=== PATIENT | female | born 1970 | race Caucasian/White ===

== ENCOUNTER 2017-01-17 10:40 | Outpatient (CLI) | payer OTHER ==
[2017-01-17 12:13] LABS: Bilirubin Negative (Negative); Blood, Urine Negative (Negative); Glucose, Urine (Dipstick) 250 mg/dL (Negative); Ketone, Urine Negative (Negative); Nitrite Negative (Negative); Protein, Urine (Dipstick) Negative (Neg-Trace); Urobilinogen 0.2 mg/dL (0.2-1.0)
[2017-01-17 12:17] LABS: Bacteria/HPF None Seen HPF (None Seen); Hyaline Casts/LPF 0-3 HYALINE CAST LPF (0-3 Hyaline); RBC/HPF 0-3 HPF (0-3); Squamous Epithelial 0-3 HPF (0-3); WBC/HPF 0-3 HPF (0-3)
[2017-01-17 12:21] LABS: #Eosinphils 0.2 thou/uL (0.0-0.7); #Lymphocytes 1.8 thou/uL (1.20-3.40); #Monocytes 0.5 thou/uL (0.11-0.59); #Neutrophils 5.3 thou/uL (1.40-6.50); %Basophils 0.5 % (0.0-1.0); %Eosinophils 2.1 % (0.0-10.0); %Lymphocytes 23.1 % (21.0-51.0); Hematocrit 44.5 % (36.0-47.0); Mean Platelet Volume 7.9 fL (7.4-10.4); Red Blood Cell (RBC) Count 5.14 mill/uL (4.20-5.40); White Blood Cell (WBC) Count 7.7 thou/uL (4.8-10.8)
[2017-01-17 12:27] LABS: PTT 26.5 SEC (22.9-36.1); Prothrombin Time 12.6 SEC (12.0-14.7)
== END 2017-01-17 10:41 | disposition home or self-care (01) ==
LOC: LABBT 10:40
PROVIDERS: ATTEND Orthopaedic Surgery
DX: Z01.812 Encounter for preprocedural laboratory examination (principal); G56.21 Lesion of ulnar nerve, right upper limb; G56.01 Carpal tunnel syndrome, right upper limb
CPT/HCPCS: 81001; 85025; 85610; 85730

== ENCOUNTER 2017-01-18 05:47 | Day surgery (SDC) | payer OTHER ==
[2017-01-17 11:01] VITALS: BMI 44.1
[2017-01-18] MEDS ORDERED: CEFAZOLIN/Water 2 GM/20 ML SYRINGE ONE (06:00)
[2017-01-18] MEDS ORDERED: Lidocaine 1% w/Epinephrine 1:200K 30 ML VIAL ONE (06:52)
[2017-01-18] MEDS ORDERED: Midazolam HCl 2 mg/2 ml Vial ONE ×2 (07:02→07:05)
[2017-01-18] MEDS ORDERED: Fentanyl 250 MCG/5 ML VIAL ONE (07:05)
[2017-01-18] MEDS ORDERED: Bupivacaine/Epinephrine 0.25% 30 ML VIAL ONE (07:34)
[2017-01-18] MEDS ORDERED: Fentanyl 100 MCG/2 ML VIAL ONE ×2 (09:02→10:03)
--- NOTE | 2017-01-18 10:00 | OP ---
DATE OF PROCEDURE: 01/18/2017 PREOPERATIVE DIAGNOSES: 1. Right carpal tunnel. 2. Right cubital tunnel. PROCEDURE PERFORMED: 1. Right open carpal tunnel release. 2. Right open cubital tunnel release. 3. Application of long arm splint. STAFF: Santos Jeffries M.D. SCHOOL PROGRAM DIRECTOR: None. ANESTHESIA: Aleksey Olmstead. The patient received a LMA with 20 mL of 0.25% Marcaine with epinephrine. ESTIMATED BLOOD LOSS: Less than 30 mL. TOURNIQUET TIME: 45 minutes at 250 mmHg. ANTIBIOTICS: Ancef 2 grams. IMPLANTS: None. COMPLICATIONS: None. HISTORY OF PRESENT ILLNESS: Ms. Miranda is a 46-year-old female who is right hand dominant. The pat ient works as a nurse. The patient presented after a nerve conduction test showing carpal tunnel and cubital tunnel. She has had symptoms for 3 years. I discussed with the patient the risks and benef its of right carpal and cubital tunnel release including pain, scar, bleeding, infection, damage to t he nerves, need for further surgeries, failure of procedure, continued pain despite surgical interven tion, stiffness, loss of life or limb. The patient understood the risks and benefits of the procedur e and elected to proceed. PROCEDURE IN DETAIL: Timeout was performed designating the patient's right upper extremity as the op erative site. Based on sight, consents and marking after completion of timeout, the patient's right upper extremity was prepped and draped in sterile fashion. Tourniquet was brought up and left up fo r a total of 45 minutes. Incision was made proximal to Granados's cardinal line in line with the fourt h ray and lateral to the hypothenar eminence down through skin. The fat was excised, came down on th e patient's transverse carpal ligament. We used a hemostat to protect the nerve distally, came down transecting the transverse carpal ligament in its entirety. I looked proximally to ensure the fascia as well as transverse carpal tunnel was released. The nerve was released in its entirety. I washed the wound, closed with 4-0 nylon horizontal mattresses, placed 9 mL of Marcaine in the wound incisio ns as well as subcu in a wrist block fashion. I then moved to the patient's elbow, I perform an inci juan carlos over the patient just in the midline. The patient had an incision down through skin, there were some vessels bleeding, came down to the triceps. I found the lateral aspect of the triceps, took th e fascia and the Chen's ligament. I released it laterally to medially keeping a consistent fascia l band to help act as a sling to keep it from subluxing, I then moved proximally to ensure that it wa s released in its entirety, I then moved proximally. I moved distally to ensure the fascia was split . I ensured it was completely released. I used 0 Vicryl to use to that fascial band, I sewed subcu t o help as a sling to keep it from subluxing over the epicondyle. I watched it track, it did not snap or sublux. I then washed and closed with 2-0 and 3-0 Vicryl and placed 10 mL of Marcaine subcu for pain relief. After I had washed, closed and placed the patient in a long posterior splint. The patient will follow up with me in 2 weeks for suture removal. She will remove the splint in 1 we ek.
[2017-01-18] MEDS ORDERED: HYDROcodone/Acetaminophen 5/325 mg Tablet ONE (10:40)
[2017-01-18] MEDS ORDERED: Propofol 200 MG/20 ML VIAL ONE (14:42)
[2017-01-18] MEDS ORDERED: Ondansetron HCl/PF 4 MG/2 ML Vial ONE (14:42)
== END 2017-01-18 11:30 | disposition home or self-care (01) ==
LOC: SDC 05:47
PROVIDERS: ATTEND Orthopaedic Surgery
PROC: 01N40ZZ Release Ulnar Nerve, Open Approach (ICD-10-PCS; principal; 2017-01-18)
PROC: 01N50ZZ Release Median Nerve, Open Approach (ICD-10-PCS; principal; 2017-01-18)
DX: G56.01 Carpal tunnel syndrome, right upper limb (principal); G56.21 Lesion of ulnar nerve, right upper limb; E78.5 Hyperlipidemia, unspecified; D66 Hereditary factor VIII deficiency; F17.210 Nicotine dependence, cigarettes, uncomplicated; E66.01 Morbid (severe) obesity due to excess calories; Z68.41 Body mass index [BMI] 40.0-44.9, adult; Z88.5 Allergy status to narcotic agent; Z88.6 Allergy status to analgesic agent; Z88.8 Allergy status to other drugs, medicaments and biological substances; Z91.018 Allergy to other foods; Z79.899 Other long term (current) drug therapy; Z98.890 Other specified postprocedural states
CPT/HCPCS: 96374; J2250; J2405; J2704; J3010

== ENCOUNTER 2017-06-22 11:48 | Outpatient (CLI) | payer OTHER ==
--- NOTE | 2017-06-22 13:40 | ULT ---
ULTRASOUND PELVIS: HISTORY: R10.2, right adnexal tenderness. COMPARISON: None. TECHNIQUE: Real-time, resendiz scale, color Doppler, and spectral analysis of the pelvis was performed by transabdom inal and transvaginal approach. The uterus measures 7.4 x 3.7 x 5 cm. Endometrial thickness is 4 mm. Right ovary is 2.4 x 1.6 x 1.2 cm. The left ovary is not visualized. The technologist states there are multiple small fibroids of the uterus. There is an ovoid mass lanre g the anterior submucosal interface measuring up to 1.8 cm. This effaces the endometrial stripe. IMPRESSION: 1. Likely an anterior fundal submucosal fibroid measuring up to 1.8 cm, although a mass cannot be co mpletely excluded. Direct visualization may be helpful. 2. Nonvisualization of the left ovary. 3. No free fluid. POS: [facility]
== END 2017-06-22 11:49 | disposition home or self-care (01) ==
LOC: SCSMRI 11:48
PROVIDERS: ATTEND Internal Medicine
DX: R10.2 Pelvic and perineal pain (principal)
CPT/HCPCS: 76856

== ENCOUNTER 2017-06-27 11:12 | Emergency (ER) | payer OTHER ==
[2017-06-27 11:58] LABS: #Eosinphils 0.2 thou/uL (0.0-0.7); #Lymphocytes 2.4 thou/uL (1.20-3.40); #Monocytes 0.4 thou/uL (0.11-0.59); #Neutrophils 6.5 thou/uL (1.40-6.50); %Basophils 0.4 % (0.0-1.0); %Eosinophils 2.3 % (0.0-10.0); %Lymphocytes 24.9 % (21.0-51.0); %Monocytes 4.2 % (0.0-10.0); %Neutrophils 68.1 % (42.0-75.0); Hemoglobin 14.9 g/dL (12.0-16.0); Mean Corpuscular HGB CONC 34.4 g/dL (32.0-36.0); Mean Corpuscular Hemoglobin 29.6 pg (27.0-31.0); Mean Corpuscular Volume 86.1 fl (81.0-99.0); Mean Platelet Volume 8.2 fL (7.4-10.4); Platelet Count 281 thou/uL (130-400); RBC Distribution Width 12.7 % (11.5-14.5); Red Blood Cell (RBC) Count 5.02 mill/uL (4.20-5.40); White Blood Cell (WBC) Count 9.5 thou/uL (4.8-10.8)
[2017-06-27] MEDS ORDERED: Ondansetron ODT 4 MG TAB ONE (12:13)
[2017-06-27] MEDS ORDERED: Nitroglycerin 0.4 MG TAB (25 Tab Bottle) ONE (12:13)
[2017-06-27 12:14] LABS: CKMB 0.5 ng/mL (0-6.6); Troponin I Less than 0.010 ng/mL (< 0.028)
[2017-06-27 12:23] LABS: Magnesium 2.1 mg/dL (1.6-2.6)
--- NOTE | 2017-06-27 12:24 | RAD ---
CHEST ONE VIEW: History: 46-year-old female with history of chest pain. FINDINGS: Heart size is within normal limits. Monitor lead overlies the chest. No confluent pneumonia, overt ed filomena, or pleural effusion. IMPRESSION: No acute intrathoracic disease. POS: [facility]
[2017-06-27 12:34] LABS: Bilirubin Negative (Negative); Blood, Urine Negative (Negative); Clarity CLEAR (Clear); Glucose, Urine (Dipstick) Negative (Negative); Leukocyte Negative (Negative); Nitrite Negative (Negative); Protein, Urine (Dipstick) Negative (Neg-Trace); Urobilinogen 0.2 mg/dL (0.2-1.0); pH, Urine 5.5 (5.0-9.0)
[2017-06-27 12:37] LABS: ALT (SGPT) 38 U/L (8-55); AST (SGOT) 55 U/L (5-34); Alkaline Phosphatase 127 U/L (40-150); Anion Gap 15 mmol/L (10-20); BUN (Urea Nitrogen) 11 mg/dL (7.0-18.7); Bilirubin, Total 0.4 mg/dL (0.2-1.2); Calc. Creatinine Clearance 0 mL/min (70-130); Calcium 9.4 mg/dL (7.8-10.44); Carbon Dioxide 25 mmol/L (22-29); Chloride 102 mmol/L (98-107); Estimated GFR-MDRD Greater than 90; Globulin 3.2 g/dL (2.4-3.5); Glucose 148 mg/dL (70-105); Potassium 4.6 mmol/L (3.5-5.1); Protein, Total 7.2 g/dL (6.0-8.3); Sodium 137 mmol/L (136-145)
[2017-06-27 15:21] LABS: Troponin I Less than 0.010 ng/mL (< 0.028)
== END 2017-06-27 16:39 | disposition home or self-care (01) ==
LOC: ERS 11:12
DX: R07.89 Other chest pain (principal); E11.9 Type 2 diabetes mellitus without complications; D66 Hereditary factor VIII deficiency; F17.210 Nicotine dependence, cigarettes, uncomplicated; Z79.899 Other long term (current) drug therapy
CPT/HCPCS: 36415; 71045; 80053; 81003; 82553; 83690; 83735; 84443; 84484; 85025; 85379; 93005; Q0162

== ENCOUNTER 2017-06-29 09:59 | Outpatient (CLI) | payer OTHER | END 2017-06-29 10:00 | disposition home or self-care (01) | LOC: BICMAMMO 09:59 | PROVIDERS: ATTEND Internal Medicine | DX: N63.10 Unspecified lump in the right breast, unspecified quadrant (principal); Z80.3 Family history of malignant neoplasm of breast | CPT/HCPCS: 77066; G0279 ==

== ENCOUNTER 2017-06-29 14:38 | Outpatient (CLI) | payer OTHER ==
--- NOTE | 2017-06-29 15:53 | MRI ---
MRI LUMBAR SPINE NONCONTAST: HISTORY: Low back pain with left thigh radiculopathy. FINDINGS: Conus medullaris has a normal appearance. Vertebral body height and alignment are maintained. Mild osteophytosis is present throughout the lower facets. Very mild posterior disk bulge is present at t he lumbosacral junction without focal herniation. Tarlov cysts are associated with the left sacral n erve root at the S2 level. IMPRESSION: Very mild degenerative changes lower lumbar spine. No focal disk herniation or nerve root compressio n. POS: [facility]
== END 2017-06-29 14:39 | disposition home or self-care (01) ==
LOC: TBSIIMAG 14:38
PROVIDERS: ATTEND Internal Medicine
DX: M47.26 Other spondylosis with radiculopathy, lumbar region (principal)
CPT/HCPCS: 72148

== ENCOUNTER 2017-11-06 10:39 | Emergency (ER) | payer OTHER ==
[2017-11-06] MEDS ORDERED: ISOVUE-370 76%-LOCM 1 ML ONE (10:51)
[2017-11-06 11:28] LABS: Bilirubin Negative (Negative); Blood, Urine Negative (Negative); Clarity CLEAR (Clear); Glucose, Urine (Dipstick) >=1000 mg/dL (Negative); Leukocyte Negative (Negative); Nitrite Negative (Negative); Protein, Urine (Dipstick) Negative (Neg-Trace); Specific Gravity, Urine 1.029 (1.002-1.036); Urobilinogen 0.2 mg/dL (0.2-1.0)
[2017-11-06 11:28] LABS: #Basophils 0.1 thou/uL (0.0-0.2); #Eosinphils 0.2 thou/uL (0.0-0.7); #Lymphocytes 2.2 thou/uL (1.20-3.40); #Monocytes 0.3 thou/uL (0.11-0.59); #Neutrophils 5.2 thou/uL (1.40-6.50); %Basophils 0.8 % (0.0-1.0); %Eosinophils 2.8 % (0.0-10.0); %Lymphocytes 27.2 % (21.0-51.0); %Monocytes 3.3 % (0.0-10.0); Hemoglobin 14.8 g/dL (12.0-16.0); Mean Corpuscular HGB CONC 33.8 g/dL (32.0-36.0); Mean Corpuscular Hemoglobin 29.1 pg (27.0-31.0); Mean Platelet Volume 8.6 fL (7.4-10.4); Platelet Count 271 thou/uL (130-400); RBC Distribution Width 12.9 % (11.5-14.5); Red Blood Cell (RBC) Count 5.09 mill/uL (4.20-5.40); White Blood Cell (WBC) Count 7.9 thou/uL (4.8-10.8)
[2017-11-06 11:47] LABS: ALT (SGPT) 44 U/L (8-55); AST (SGOT) 83 U/L (5-34); Alkaline Phosphatase 134 U/L (40-150); Anion Gap 16 mmol/L (10-20); BUN (Urea Nitrogen) 12 mg/dL (7.0-18.7); Bilirubin, Total 0.3 mg/dL (0.2-1.2); Calc. Creatinine Clearance 0 mL/min (70-130); Calcium 9.9 mg/dL (7.8-10.44); Carbon Dioxide 26 mmol/L (22-29); Chloride 99 mmol/L (98-107); Estimated GFR-MDRD 76; Globulin 3.7 g/dL (2.4-3.5); Glucose 303 mg/dL (70-105); Lipase 52 U/L (8-78); Potassium 4.6 mmol/L (3.5-5.1); Protein, Total 7.7 g/dL (6.0-8.3); Sodium 136 mmol/L (136-145)
[2017-11-06 13:15] LABS: CKMB 0.4 ng/mL (0-6.6); Troponin I Less than 0.010 ng/mL (< 0.028)
[2017-11-06] MEDS ORDERED: Ondansetron HCl/PF 4 MG/2 ML Vial ONE (14:36)
[2017-11-06] MEDS ORDERED: Morphine 4 MG/ML VIAL ONE (14:37)
--- NOTE | 2017-11-06 15:22 | CT ---
CT OF ABDOMEN AND PELVIS PERFORMED WITH CONTRAST ENHANCEMENT: History: Abdominal pain, vomiting, and loose stools. Diagnosed with pyelonephritis on . Also states a fever. History of factor A deficiency, hyperlipidemia. FINDINGS: The lung bases are clear of any infiltrate process. There are diffuse fatty changes of the liver whic h is enlarged. The right lobe is some thin elongated and therefore the superior to inferior dimension is somewhat misleading but it measures 30 cm. The spleen is 14.5 cm in length. Pancreas and gallblad jeanne regions appear unremarkable. Right and left adrenal glands and right and left kidneys are normal in size and appearance. No perine phric fat stranding. No signs of renal calculi or evidence of obstruction. There is no significant pe riaortic or mesenteric adenopathy. No bowel wall abnormalities are appreciated. CT OF PELVIS PERFORMED WITH CONTRAST ENHANCEMENT: The cecum passes actually slightly to the left of midline. The appendix area appear unremarkable. The re appears to be a small appendix present. I do not see any inflammatory change in this area. No free fluid, adenopathy or mass. Review of osseous structures show some minimal arthritic changes of the spine. IMPRESSION: 1. Diffuse fatty changes of the liver which hepatosplenomegaly. 2. Incidental note is made of a small fat containing periumbilical hernia. POS: [facility]
--- NOTE | 2017-11-10 13:36 | EKG ---
Test Reason : Blood Pressure : / mmHG Vent. Rate : 095 BPM Atrial Rate : 095 BPM P-R Int : 146 ms QRS Dur : 074 ms QT Int : 356 ms P-R-T Axes : 041 014 020 degrees QTc Int : 447 ms Normal sinus rhythm Possible Left atrial enlargement Low voltage QRS Septal infarct , age undetermined Abnormal ECG Confirmed by CHANTEL HIDALGO, ERIS Fountain ([id number]), make up editor SUSANA MCCLURE ([id number]) on 11/10/2017 1:35:38 PM Referred By: Confirmed By:ERIS GOLDEN MD
== END 2017-11-06 17:11 | disposition home or self-care (01) ==
LOC: ERS 10:39
DX: R11.2 Nausea with vomiting, unspecified (principal); R10.9 Unspecified abdominal pain; E78.5 Hyperlipidemia, unspecified; E11.9 Type 2 diabetes mellitus without complications; F17.210 Nicotine dependence, cigarettes, uncomplicated; Z71.6 Tobacco abuse counseling; Z79.84 Long term (current) use of oral hypoglycemic drugs; Z79.899 Other long term (current) drug therapy
CPT/HCPCS: 36415; 74177; 80053; 81003; 82550; 82553; 83690; 83880; 84484; 85025; 93005; 96361; 96374; 96375; J2270; J2405

== ENCOUNTER 2018-02-18 09:57 | Outpatient (CLI) | payer OTHER ==
--- NOTE | 2018-02-18 12:52 | MRI ---
MRI OF LEFT KNEE PERFORMED WITHOUT CONTRAST ENHANCEMENT: History: Left knee pain. FINDINGS: The anterior as well as posterior cruciate ligaments are intact. The lateral meniscus has a normal shape and appearance. On the sagittal images there is a slightly tr uncated appearance to the posterior horn of the medial meniscus near the meniscal root, less impressi ve on the coronal views, but is felt to represent a partial root tear. There is meniscal protrusion o f the body of the meniscus and there is a truncated appearance with a free edge tear involving the blanche dy region of the meniscus. There are arthritic changes of the medial compartment of the knee associat ed with this. Articular cartilage loss and some subchondral marrow edema change along the edge of the medial femoral condyle and tibia. Medial and lateral collateral ligaments and iliotibial band regions are unremarkable. Patellar articular cartilage is intact. Medial and lateral patellar retinaculum and quadriceps and pa tellar tendons are normal. IMPRESSION: Moderate arthritic changes of the medial compartment of the knee. Mildly truncated appearance to the posterior horn near the meniscal ridge is felt to represent a partial root tear. The body of the meni scus shows meniscal protrusion and a truncated appearance suggesting a free edge tear. POS: [facility]
== END 2018-02-18 09:58 | disposition home or self-care (01) ==
LOC: MRI 09:57
PROVIDERS: ATTEND Orthopaedic Surgery
DX: M17.12 Unilateral primary osteoarthritis, left knee (principal); M23.307 Other meniscus derangements, unspecified meniscus, left knee

== ENCOUNTER 2018-03-07 07:45 | Outpatient (CLI) | payer OTHER ==
[2018-03-07 11:36] LABS: Hemoglobin 13.8 g/dL (12.0-16.0); Mean Corpuscular HGB CONC 33.3 g/dL (32.0-36.0); Mean Corpuscular Hemoglobin 29.3 pg (27.0-31.0); Mean Corpuscular Volume 87.8 fL (78.0-98.0); Mean Platelet Volume 8.8 fL (7.4-10.4); Platelet Count 308 thou/uL (130-400); RBC Distribution Width 12.4 % (11.5-14.5); Red Blood Cell (RBC) Count 4.73 mill/uL (4.20-5.40)
[2018-03-07 11:37] LABS: Bilirubin Negative (Negative); Blood, Urine Large (Negative); Clarity CLOUDY (Clear); Glucose, Urine (Dipstick) Negative (Negative); Leukocyte Small (Negative); Nitrite Negative (Negative); Protein, Urine (Dipstick) Negative (Neg-Trace); Specific Gravity, Urine 1.022 (1.002-1.036); Urobilinogen 0.2 mg/dL (0.2-1.0)
[2018-03-07 11:41] LABS: RBC/HPF 21-50 HPF (0-3)
[2018-03-07 11:48] LABS: Pathc Cast-AUWi Flag 3.34 (0-2.49)
[2018-03-07 12:00] LABS: Prothrombin Time 13.4 SEC (12.0-14.7)
[2018-03-07 12:12] LABS: Anion Gap 17 mmol/L (10-20); BUN (Urea Nitrogen) 11 mg/dL (7.0-18.7); Calc. Creatinine Clearance 0 mL/min (70-130); Carbon Dioxide 23 mmol/L (22-29); Chloride 102 mmol/L (98-107); Estimated GFR-MDRD Greater than 90; Glucose 140 mg/dL (70-105); Potassium 4.2 mmol/L (3.5-5.1); Sodium 138 mmol/L (136-145)
[2018-03-07 12:13] LABS: Bacteria/HPF 1+ HPF (None Seen); Hyaline Casts/LPF 0-3 HYALINE CAST LPF (0-3 Hyaline); Manual Microscopic Reviewed? No Path Casts Seen
--- NOTE | 2018-03-07 13:19 | EKG ---
Test Reason : Blood Pressure : / mmHG Vent. Rate : 095 BPM Atrial Rate : 095 BPM P-R Int : 156 ms QRS Dur : 078 ms QT Int : 354 ms P-R-T Axes : 063 071 050 degrees QTc Int : 444 ms Normal sinus rhythm Low voltage QRS Septal infarct (cited on or before 27-JUN-2017) Abnormal ECG When compared with ECG of 06-NOV-2017 13:21, Questionable change in QRS axis Confirmed by ANABELA HIDALGO, . SJessica ([id number]) on 03/07/2018 1:19:02 PM Referred By: ELENI Confirmed By:DR. Nila PEÑALOZA MD
== END 2018-03-07 07:46 | disposition home or self-care (01) ==
LOC: LABBT 07:45
PROVIDERS: ATTEND Orthopaedic Surgery
DX: Z01.818 Encounter for other preprocedural examination (principal); M17.12 Unilateral primary osteoarthritis, left knee
CPT/HCPCS: 80048; 81001; 85027; 85610; 86850; 86900; 86901; 87081; 93005; 93010

== ENCOUNTER 2018-03-07 08:45 | Inpatient (IN) | payer OTHER ==
[2018-03-07 09:02] VITALS: BMI 44.6
[2018-03-12] MEDS ORDERED: Sodium Chloride 0.9% 100 ML ONE (06:41)
[2018-03-12] MEDS ORDERED: CEFAZOLIN 2 GM/50 ML BAG ONE (06:41)
[2018-03-12] MEDS ORDERED: Tranexamic Acid 1,000 MG/10 ML VIAL ONE ×3 (06:41→11:13)
[2018-03-12] MEDS ORDERED: Midazolam HCl 2 mg/2 ml Vial ONE ×2 (06:56→13:28)
[2018-03-12] MEDS ORDERED: Fentanyl 100 MCG/2 ML VIAL ONE ×4 (06:56→12:26)
[2018-03-12] MEDS ORDERED: Bupivacaine HCl 0.5%/Epinephrine 1:200,000/PF 30 ml Vial ONE ×2 (07:02)
[2018-03-12] MEDS ORDERED: Levofloxacin 500 mg/D5W 100 ml Premix Bag ONE (07:58)
[2018-03-12] MEDS ORDERED: Ondansetron PF 4 MG/2 ML Vial IVP PRN ×2 (08:45→14:30)
[2018-03-12] MEDS ORDERED: Zolpidem Tartrate 5 MG TAB PO PRN ×2 (08:45→14:30)
[2018-03-12] MEDS ORDERED: traMADol HCl 50 MG TAB PO PRN ×3 (08:45→14:30)
[2018-03-12] MEDS ORDERED: HYDROcodone/Acetaminophen 10/325 mg Tablet PO PRN ×3 (08:45→14:30)
[2018-03-12] MEDS ORDERED: Promethazine HCl 25 MG/ML VIAL IM PRN ×2 (08:45→14:30)
[2018-03-12] MEDS ORDERED: Ropivacaine HCl/PF 250 ML in Premix Bag 1 BAG NERVE BLCK SCH (08:45)
[2018-03-12] MEDS ORDERED: Meperidine HCl/PF 25 MG/ML VIAL ONE ×2 (09:38→09:41)
[2018-03-12 09:53] LABS: Bilirubin Negative (Negative); Blood, Urine Negative (Negative); Clarity CLEAR (Clear); Glucose, Urine (Dipstick) Negative (Negative); Leukocyte Negative (Negative); Nitrite Negative (Negative); Protein, Urine (Dipstick) Negative (Neg-Trace); Specific Gravity, Urine 1.018 (1.002-1.036); Urobilinogen 0.2 mg/dL (0.2-1.0); pH, Urine 5.5 (5.0-9.0)
[2018-03-12 09:55] LABS: Bacteria/HPF None Seen HPF (None Seen); Hyaline Casts/LPF 0-3 HYALINE CAST LPF (0-3 Hyaline); Pathc Cast-AUWi Flag 0.58 (0-2.49); RBC/HPF 0-3 HPF (0-3); Squamous Epithelial 0-3 HPF (0-3); WBC/HPF 0-3 HPF (0-3)
--- NOTE | 2018-03-12 12:20 | RAD ---
TWO VIEWS LEFT KNEE: Date: 03-12-18 Provided Clinical History: Post op. FINDINGS: Post op changes of left total knee arthroplasty are demonstrated. There is no evidence for an acute o sseous abnormality. Post-operative soft tissue gas is seen. IMPRESSION: As above. POS: [facility]
[2018-03-12] MEDS ORDERED: Non-Formulary Medication 1 EACH PO PRN (12:40)
[2018-03-12] MEDS ORDERED: Promethazine HCl 25 MG/ML VIAL IM/IV PRN (12:40)
[2018-03-12] MEDS ORDERED: Ondansetron HCl/PF 4 MG/2 ML Vial IVP PRN (12:40)
[2018-03-12] MEDS ORDERED: Dextrose 5% in Water 1,000 ML IV PRN (14:24)
[2018-03-12] MEDS ORDERED: Dextrose 50% Abboject 50 ML SYRINGE SLOW IVP PRN (14:24)
[2018-03-12] MEDS ORDERED: Diabetic Tussin 200 MG/10 ML UDCUP PO PRN (14:25)
[2018-03-12] MEDS ORDERED: Senokot S 8.6-50 MG TAB PO PRN (14:25)
[2018-03-12] MEDS ORDERED: Sodium Chloride 0.65% Nasal 44 ML BOT EA NARE PRN (14:25)
[2018-03-12] MEDS ORDERED: Loperamide HCl 2 MG CAP PO PRN (14:25)
[2018-03-12] MEDS ORDERED: Cepastat Lozenges 1 LOZ PO PRN (14:25)
[2018-03-12] MEDS ORDERED: Loratadine 10 MG TAB PO PRN (14:25)
[2018-03-12] MEDS ORDERED: Ondansetron ODT 4 MG TAB PO PRN (14:25)
[2018-03-12] MEDS ORDERED: Artificial Tears 18 DROP/0.9 ML EA EYE PRN (14:25)
[2018-03-12] MEDS ORDERED: Eucerin (Mineral Oil/Petrolatum,White) 30 gm Jar TOP PRN (14:25)
[2018-03-12] MEDS ORDERED: hydrALAZINE 20 MG/ML VIAL SLOW IVP PRN (14:25)
--- NOTE | 2018-03-12 14:29 | PDOC.PN ---
- Subjective Encounter Start Date: 03/12/18 Encounter Start Time: 15:15 -: old records requested/rev Patient seen and examined. No new complaints. No overnight events consulted for medical management she had left knee replacement - Objective Resuscitation Status - Order Detail: 03/12/18 14:25 Resuscitation Status Routine Resuscitation Status: FULL: Full Resuscitation MAR Reviewed: Yes Vital Signs & Weight: Weight Weight 268 lb I&O: 03/11/18 03/12/18 03/13/18 06:59 06:59 06:59 Intake Total 260 Output Total 250 Balance 10 Phys Exam - Physical Examination Constitutional: NAD HEENT: PERRLA, moist MMs, sclera anicteric Neck: no JVD, supple Respiratory: no wheezing, no rales, no rhonchi Cardiovascular: RRR, no significant murmur, no rub Gastrointestinal: soft, non-tender, no distention, positive bowel sounds obesity+ Musculoskeletal: no edema, pulses present left knee with dressing, nerve block in place Neurological: non-focal, normal sensation, moves all 4 limbs Psychiatric: normal affect, A&O x 3 Skin: no rash, normal turgor Dx/Plan (1) Status post total left knee replacement Code(s): Z96.652 - PRESENCE OF LEFT ARTIFICIAL KNEE JOINT Status: Acute (2) Diabetes type 2, controlled Code(s): E11.9 - TYPE 2 DIABETES MELLITUS WITHOUT COMPLICATIONS Status: Chronic (3) Dyslipidemia Code(s): E78.5 - HYPERLIPIDEMIA, UNSPECIFIED Status: Chronic (4) GERD (gastroesophageal reflux disease) Code(s): K21.9 - GASTRO-ESOPHAGEAL REFLUX DISEASE WITHOUT ESOPHAGITIS Status: Chronic (5) Hypertension Code(s): I10 - ESSENTIAL (PRIMARY) HYPERTENSION Status: Chronic (6) Morbid obesity with BMI of 40.0-44.9, adult Code(s): E66.01 - MORBID (SEVERE) OBESITY DUE TO EXCESS CALORIES; Z68.41 - BODY MASS INDEX (BMI) 40.0-44.9, ADULT Status: Chronic - Plan cont current plan of care, plan discussed w/ family, PT/OT * medication reviewed as below * symptomatic treatment * home medication reconciled * nerve block as per anesthesia * PT/OT as per [facility] protocol * pain control * code status full code * will follow. * protonix for GI prophylaxis. Review of Systems - Review of Systems ENT: negative: Ear Pain, Ear Discharge, Nose Pain, Nose Discharge, Nose Congestion, Mouth Pain, Mouth Swelling, Throat Pain, Throat Swelling, Other Respiratory: negative: Cough, Dry, Shortness of Breath, Hemoptysis, SOB with Excertion, Pleuritic Pain, Sputum, Wheezing Cardiovascular: negative: chest pain, palpitations, orthopnea, paroxysmal nocturnal dyspnea, edema, light headedness, other Gastrointestinal: negative: Nausea, Vomiting, Abdominal Pain, Diarrhea, Constipation, Melena, Hematochezia, Other Genitourinary: negative: Dysuria, Frequency, Incontinence, Hematuria, Retention , Other Musculoskeletal: negative: Neck Pain, Shoulder Pain, Arm Pain, Back Pain, Hand Pain, Leg Pain, Foot Pain, Other Skin: negative: Rash, Lesions, Erich, Bruising, Other - Medications/Allergies Allergies/Adverse Reactions: Allergies Allergy/AdvReac Type Severity Reaction Status Date / Time erythromycin base Allergy severe Verified 01/17/17 11:02 vomiting hydrocodone [From Vicodin] Allergy itching Verified 01/17/17 11:02 pecan nut Allergy Hives Verified 01/17/17 11:02 Medications: Current Medications Hydrocodone Bitart/Acetaminophen (Arbuckle 10/325) 1 tab PO Q4H PRN PRN Reason: Pain (1-3) Hydrocodone Bitart/Acetaminophen (Arbuckle 10/325) 2 tab PO Q4H PRN PRN Reason: PAIN (4-6) Alogliptin Benzoate (Alogliptin) 25 mg PO DAILY [facility] Artificial Tears (Tears Naturale) 2 drop EA EYE PRN PRN PRN Reason: Dry Eyes Cholecalciferol (Vitamin D3) 4,000 units PO DAILY [facility] Dextrose/Water (Dextrose 50%) 25 gm SLOW IVP PRN PRN PRN Reason: Hypoglycemia Fentanyl (Sublimaze) 50 mcg SLOW IVP Q1H PRN PRN Reason: breakthrough pain Fentanyl (Pacu-Sublimaze) 50 mcg SLOW IVP Q10MIN PRN PRN Reason: Moderate to Severe Pain/PACU Stop: 03/12/18 15:00 Glipizide (Glucotrol) 5 mg PO DAILY[facility] Glucagon (Glucagon) 1 mg IM PRN PRN PRN Reason: Hypoglycemia Guaifenesin (Robitussin Sf) 200 mg PO Q4H PRN PRN Reason: Cough Hydralazine HCl (Apresoline) 10 mg SLOW IVP Q4H PRN PRN Reason: SBP > 180 and HR < 70 Ropivacaine 250 ml/ Device 250 mls @ 10 mls/hr NERVE BLCK INF TREVOR Dextrose/Water (D5w) 1,000 mls @ 0 mls/hr IV .Q0M PRN PRN Reason: Hypoglycemia Insulin Human Lispro (Humalog) 0 units SC .MODERATE SLIDING SC PRN PRN Reason: Moderate Correctional Scale Insulin Human Lispro (Humalog) 0 units SC .BEDTIME SLIDING SC PRN PRN Reason: Bedtime Correctional Scale Ketorolac Tromethamine (Toradol) 30 mg IVP Q6HR [facility] Stop: 03/14/18 06:01 Lisinopril (Zestril) 5 mg PO DAILY [facility] Loperamide HCl (Imodium) 2 mg PO PRN PRN PRN Reason: Diarrhea/Loose Stools Loratadine (Claritin) 10 mg PO DAILYPRN PRN PRN Reason: Sinus Symptoms Metformin HCl (Glucophage Xr) 1,000 mg PO BID-WM [facility] Mineral Oil/White Petrolatum (Eucerin Cream) 0 gm TOP BIDPRN PRN PRN Reason: Dry Skin Non-Formulary Medication () 0 each PO PRN PRN PRN Reason: FOR RR<12 OR O2 SAT<92%ON RA Stop: 03/12/18 15:00 Ondansetron HCl (Zofran) 4 mg IVP Q6H PRN PRN Reason: Nausea/Vomiting Ondansetron HCl (Pacu-Zofran) 4 mg IVP ONE PRN PRN Reason: Nausea/Vomiting in PACU Stop: 03/12/18 15:00 Ondansetron HCl (Zofran Odt) 4 mg PO Q6H PRN PRN Reason: Nausea/Vomiting Pantoprazole Sodium (Protonix) 40 mg PO DAILY [facility] Promethazine HCl (Phenergan) 12.5 mg IM Q4H PRN PRN Reason: Nausea Promethazine HCl (Pacu-Phenergan) 6.25 mg IM/IV ONE PRN PRN Reason: Nausea in PACU Stop: 03/12/18 15:00 Rosuvastatin Calcium (Crestor) 10 mg PO HS [facility] Senna/Docusate Sodium (Senokot S) 2 tab PO BID PRN PRN Reason: Constipation Sodium Chloride ([place] Nasal [place] 0.65%) 0 ml EA NARE QIDPRN PRN PRN Reason: Nasal Congestion Throat Lozenges (Cepastat Lozenges) 1 zelda PO Q2H PRN PRN Reason: Sore Throat Tramadol HCl (Ultram) 50 mg PO Q6H PRN PRN Reason: Mild Pain (1-3) Tramadol HCl (Ultram) 100 mg PO Q6H PRN PRN Reason: Moderate Pain 4-6 Zolpidem Tartrate (Ambien) 5 mg PO HSPRN PRN PRN Reason: Insomnia
[2018-03-12] MEDS ORDERED: Ketorolac Tromethamine 30 MG/ML VIAL IVP PRN (14:30)
[2018-03-12] MEDS ORDERED: CEFAZOLIN/Water 2 GM/20 ML SYRINGE SLOW IVP SCH (14:30)
[2018-03-12] MEDS ORDERED: Acetaminophen 325 MG TAB PO PRN (14:30)
[2018-03-12] MEDS ORDERED: Acetaminophen/Codeine 30-300mg Tablet PO PRN ×2 (14:30)
[2018-03-12] MEDS ORDERED: Fentanyl 100 MCG/2 ML VIAL SLOW IVP PRN ×2 (14:30)
[2018-03-12] MEDS: Ketorolac Tromethamine 30 MG/ML VIAL IVP SCH ×2 (14:31→16:32)
[2018-03-12] MEDS: Fentanyl 100 MCG/2 ML VIAL SLOW IVP PRN ×2 (14:36→17:40)
--- NOTE | 2018-03-12 14:52 | OP ---
DATE OF PROCEDURE: 03/12/2018 PREOPERATIVE DIAGNOSIS: Left knee osteoarthritis. POSTOPERATIVE DIAGNOSIS: Left knee osteoarthritis. PROCEDURE PERFORMED: Left total knee arthroplasty. POWDER MILL OPERATOR: Dorian Rock PA-C. ANESTHESIA: Dr. Nichole. The patient received LMA, adductor canal catheter with single-shot sciatic. TOURNIQUET TIME: 70 minutes at 300 mmHg. ANTIBIOTICS: Ancef 2 g, vancomycin 2 g, Lovenox 500 mg. INJECTIONS: TXA 1 g IMPLANTS: Ritesh size 4 triathlon CR femur, a triathlon X3 symmetric S27 poly , a triathlon primary base plate size 3, and a triathlon tibial insert CS 3, 9 mm. ESTIMATED BLOOD LOSS: About 100 mL. COMPLICATIONS: None. INDICATION FOR PROCEDURE: Ms. Miranda is a 47-year-old female presented with three years of left knee pain. The patient has chronically had pain started up. Pain got severe two months ago, the patient undergone conservative management with injections, weight loss, NSAIDs, and home exercise program. The patient has failed conservative management. The patient continued to have elevating pain. Discussed with her that given her medical conditions and her age with increased risk for revision alf, I discussed the surgery would help her with her pain control , but mainly lasting 15 to 20 years. I discussed the risks and benefits of surgery to include pain, scar, bleeding, infection, damage to vital structures, decreased range of motion and strength, nonunion, malunion, fracture above or below the stem, dislocation, need for further surgeries, loss of life or limb, risk of blood clots. The patient understood these risks and benefits. DESCRIPTION OF PROCEDURE: Time-out was performed designating the patient's left lower extremity as the operative site based on site, consents, and marking. After completion of the time-out, the patient's upper extremity was prepped and draped in sterile fashion. Tourniquet was brought up for a total of 70 minutes. Anterior midline with just medial patellar arthrotomy was performed exposing the patella fat pad was excised to expose the MCL medially. We then everted the patella, mapped out the femur cut, 8, 8, 4 degrees slope with zero degree varus and valgus. We then pinned our 3-degree guide in position, mapped to 4, cut a four block, removed all excess bone and removed the tibia. We put the pickle fork in position, exposed the tibia, placed our lateral Hohmann, positioned our tibia to evaluate and map out. We cut to 4-degrees of posterior slope, 0 degrees of varus and valgus, smoothed our tibia and pinned our three size three tray into position into 1/3rd of tibial tubercle down in line with the shaft over the second ray. We pinned it in position. We then placed a 9-mm poly. The patient had good overall extension with little bit of spitting in flexion medially and used a rasp later to clean it down. We had released the PCL. We pinned it in place, trialed with the femur, everted the patella, cut it down to 12, S27 patella. We removed all those cements and drilled the holes for lugs for our femur. We then cemented our tibia, placed our poly, femur cement or patella cement We closed the medial patellar arthrotomy with two 2 Quill, 0 Quill, 2-0 Quill and glue. The patient will be admitted per [facility] protocol, received preoperative antibiotics. We will follow up her clean-catch urine culture in the hospitalization. Job ID: [id number] [facility]
[2018-03-12] MEDS ORDERED: Ropivacaine 0.5% HCl/PF (150 MG/30 ML VIAL) ONE (16:17)
[2018-03-12] MEDS ORDERED: Ropivacaine 0.2% HCl/PF (40 MG/20 ML VIAL) ONE (16:17)
[2018-03-12] MEDS ORDERED: Ketorolac Tromethamine 30 MG/ML VIAL ONE (16:19)
[2018-03-12] MEDS ORDERED: Dexamethasone 20 MG/5 ML VIAL ONE (16:19)
[2018-03-12] MEDS ORDERED: PROPOFOL 200 MG/20 ML VIAL ONE (16:19)
[2018-03-12] MEDS ORDERED: Ondansetron PF 4 MG/2 ML Vial ONE (16:19)
[2018-03-12] MEDS: HYDROcodone/Acetaminophen 10/325 mg Tablet PO PRN ×2 (16:29→21:34)
[2018-03-12] MEDS: metFORMIN XR 500 MG TAB PO SCH (16:31)
[2018-03-12] MEDS: CEFAZOLIN 2 GM/50 ML-DEXTROSE 2 GM in Premix Bag 1 BAG IVPB SCH (16:33)
[2018-03-12] MEDS: diphenhydrAMINE 25 MG CAP PO PRN ×2 (16:36→21:36)
[2018-03-12] MEDS: Dextrose 5 %-0.45 % NaCl 1,000 ML IV SCH ×2 (16:46→21:33)
[2018-03-12] MEDS: HumaLOG 300 UNITS/3 ML VIAL SC PRN ×2 (17:45→21:20)
[2018-03-12] MEDS: Aspirin 81 mg Enteric Coated Tablet PO SCH (21:14)
[2018-03-12] MEDS: Rosuvastatin 10 MG TAB PO SCH (21:14)
[2018-03-13] MEDS: CEFAZOLIN 2 GM/50 ML-DEXTROSE 2 GM in Premix Bag 1 BAG IVPB SCH (00:21)
[2018-03-13] MEDS: Ketorolac Tromethamine 30 MG/ML VIAL IVP SCH ×3 (00:21→12:27)
[2018-03-13] MEDS: HYDROcodone/Acetaminophen 10/325 mg Tablet PO PRN ×3 (02:02→12:31)
[2018-03-13] MEDS: HumaLOG 300 UNITS/3 ML VIAL SC PRN ×3 (05:43→21:01)
[2018-03-13 05:59] LABS: Hemoglobin 11.5 g/dL (12.0-16.0); Mean Platelet Volume 8.5 fL (7.4-10.4); Platelet Count 231 thou/uL (130-400); RBC Distribution Width 12.1 % (11.5-14.5); Red Blood Cell (RBC) Count 3.95 mill/uL (4.20-5.40); White Blood Cell (WBC) Count 10.2 thou/uL (4.8-10.8)
[2018-03-13] MEDS: diphenhydrAMINE 25 MG CAP PO PRN ×2 (06:49→20:01)
[2018-03-13] MEDS: Ferrous Gluconate 324 MG TAB PO SCH ×2 (07:35→20:02)
[2018-03-13] MEDS: metFORMIN XR 500 MG TAB PO SCH ×2 (07:36→17:04)
[2018-03-13] MEDS: glipiZIDE 5 MG TAB PO SCH (07:36)
[2018-03-13] MEDS: Senokot S 8.6-50 MG TAB PO SCH ×2 (07:36→20:01)
[2018-03-13] MEDS: Aspirin 81 mg Enteric Coated Tablet PO SCH ×2 (07:36→20:02)
[2018-03-13] MEDS: Multivitamin W/ Minerals 1 TAB PO SCH (07:36)
[2018-03-13] MEDS: Lisinopril 5 MG TAB PO SCH (07:37)
[2018-03-13] MEDS: Alogliptin 25 MG TAB PO SCH (07:37)
[2018-03-13] MEDS: Dextrose 5 %-0.45 % NaCl 1,000 ML IV SCH ×2 (07:40→21:30)
[2018-03-13] MEDS: Fentanyl 100 MCG/2 ML VIAL SLOW IVP PRN (10:25)
[2018-03-13] MEDS ORDERED: Bupivacaine HCl 0.5%/Epinephrine 1:200,000/PF 30 ml Vial ONE (10:38)
--- NOTE | 2018-03-13 10:43 | PDOC.PN ---
- Subjective Encounter Start Date: 03/13/18 Encounter Start Time: 08:20 Patient seen and examined. No new complaints. No overnight events - Objective Resuscitation Status - Order Detail: 03/12/18 14:25 Resuscitation Status Routine Resuscitation Status: FULL: Full Resuscitation MAR Reviewed: Yes Vital Signs & Weight: Vital Signs (12 hours) Temp Pulse Resp BP Pulse Ox 03/13/18 07:40 97.7 F 81 18 102/63 94 L 03/13/18 07:37 86 03/13/18 04:00 98.1 F 86 18 114/71 96 03/13/18 00:00 98.5 F 91 18 118/67 97 Weight Weight 268 lb I&O: 03/12/18 03/13/18 03/14/18 06:59 06:59 06:59 Intake Total 4242 Output Total 3250 Balance 992 Result Diagrams: 03/13/18 05:30 Additional Labs: Accuchecks 03/13/18 03/12/18 03/12/18 05:42 21:20 15:02 POC Glucose 188 H 439 H 249 H Phys Exam - Physical Examination Constitutional: NAD HEENT: PERRLA, moist MMs, sclera anicteric Neck: no JVD, supple Respiratory: no wheezing, no rales, no rhonchi Cardiovascular: RRR, no significant murmur, no rub Gastrointestinal: soft, non-tender, no distention, positive bowel sounds Musculoskeletal: no edema, pulses present left knee with dressing, nerve block + Neurological: non-focal, normal sensation, moves all 4 limbs Psychiatric: normal affect, A&O x 3 Skin: no rash, normal turgor Dx/Plan (1) Status post total left knee replacement Code(s): Z96.652 - PRESENCE OF LEFT ARTIFICIAL KNEE JOINT Status: Acute (2) Diabetes type 2, controlled Code(s): E11.9 - TYPE 2 DIABETES MELLITUS WITHOUT COMPLICATIONS Status: Chronic (3) Dyslipidemia Code(s): E78.5 - HYPERLIPIDEMIA, UNSPECIFIED Status: Chronic (4) GERD (gastroesophageal reflux disease) Code(s): K21.9 - GASTRO-ESOPHAGEAL REFLUX DISEASE WITHOUT ESOPHAGITIS Status: Chronic (5) Hypertension Code(s): I10 - ESSENTIAL (PRIMARY) HYPERTENSION Status: Chronic (6) Morbid obesity with BMI of 40.0-44.9, adult Code(s): E66.01 - MORBID (SEVERE) OBESITY DUE TO EXCESS CALORIES; Z68.41 - BODY MASS INDEX (BMI) 40.0-44.9, ADULT Status: Chronic - Plan cont current plan of care, plan discussed w/ family, PT/OT * medication reviewed as below * symptomatic treatment * nerve block as per anesthesia * PT/OT as per [facility] protocol * pain controlled * possible discharge later today if doing ok and will defer to ortho. Review of Systems - Review of Systems ENT: negative: Ear Pain, Ear Discharge, Nose Pain, Nose Discharge, Nose Congestion, Mouth Pain, Mouth Swelling, Throat Pain, Throat Swelling, Other Respiratory: negative: Cough, Dry, Shortness of Breath, Hemoptysis, SOB with Excertion, Pleuritic Pain, Sputum, Wheezing Cardiovascular: negative: chest pain, palpitations, orthopnea, paroxysmal nocturnal dyspnea, edema, light headedness, other Gastrointestinal: negative: Nausea, Vomiting, Abdominal Pain, Diarrhea, Constipation, Melena, Hematochezia, Other Genitourinary: negative: Dysuria, Frequency, Incontinence, Hematuria, Retention , Other Musculoskeletal: negative: Neck Pain, Shoulder Pain, Arm Pain, Back Pain, Hand Pain, Leg Pain, Foot Pain, Other - Medications/Allergies Allergies/Adverse Reactions: Allergies Allergy/AdvReac Type Severity Reaction Status Date / Time erythromycin base Allergy severe Verified 01/17/17 11:02 vomiting hydrocodone [From Vicodin] Allergy itching Verified 01/17/17 11:02 pecan nut Allergy Hives Verified 01/17/17 11:02 Medications: Current Medications Acetaminophen (Tylenol) 650 mg PO Q4H PRN PRN Reason: Headache/Fever/MILD PAIN Acetaminophen/Codeine Phosphate (Tylenol #3) 1 tab PO Q4H PRN PRN Reason: Moderate Pain (4-6) Acetaminophen/Codeine Phosphate (Tylenol #3) 2 tab PO Q4H PRN PRN Reason: Severe Pain (7-10) Hydrocodone Bitart/Acetaminophen ([place] 10/325) 1 tab PO Q4H PRN PRN Reason: Pain (1-3) Hydrocodone Bitart/Acetaminophen ([place] 10/325) 2 tab PO Q4H PRN PRN Reason: PAIN (4-6) Last Admin: 03/13/18 06:49 Dose: 2 tab Hydrocodone Bitart/Acetaminophen ([place] 10/325) 1 tab PO Q4H PRN PRN Reason: Moderate Pain (4-6) Hydrocodone Bitart/Acetaminophen ([place] 10/325) 2 tab PO Q4H PRN PRN Reason: Severe Pain (7-10) Alogliptin Benzoate (Alogliptin) 25 mg PO DAILY [facility] Last Admin: 03/13/18 07:37 Dose: 25 mg Artificial Tears (Tears Naturale) 2 drop EA EYE PRN PRN PRN Reason: Dry Eyes Aspirin (Ecotrin) 81 mg PO BID [facility] Last Admin: 03/13/18 07:36 Dose: 81 mg Cholecalciferol (Vitamin D3) 4,000 units PO DAILY [facility] Last Admin: 03/13/18 07:34 Dose: 4,000 units Dextrose/Water (Dextrose 50%) 25 gm SLOW IVP PRN PRN PRN Reason: Hypoglycemia Diphenhydramine HCl (Benadryl) 25 mg PO Q6H PRN PRN Reason: Itching Last Admin: 03/13/18 06:49 Dose: 25 mg Fentanyl (Sublimaze) 50 mcg SLOW IVP Q1H PRN PRN Reason: breakthrough pain Last Admin: 03/13/18 10:25 Dose: 50 mcg Fentanyl (Sublimaze) 50 mcg SLOW IVP Q30MIN PRN PRN Reason: Moderate Pain (4-6) Fentanyl (Sublimaze) 100 mcg SLOW IVP Q1H PRN PRN Reason: Severe Pain (7-10) Ferrous Gluconate (Fergon) 324 mg PO BID [facility] Last Admin: 03/13/18 07:35 Dose: 324 mg Glipizide (Glucotrol) 5 mg PO DAILY-[facility] Last Admin: 03/13/18 07:36 Dose: 5 mg Glucagon (Glucagon) 1 mg IM PRN PRN PRN Reason: Hypoglycemia Guaifenesin (Robitussin Sf) 200 mg PO Q4H PRN PRN Reason: Cough Hydralazine HCl (Apresoline) 10 mg SLOW IVP Q4H PRN PRN Reason: SBP > 180 and HR < 70 Ropivacaine 250 ml/ Device 250 mls @ 10 mls/hr NERVE BLCK INF [facility] Dextrose/Water (D5w) 1,000 mls @ 0 mls/hr IV .Q0M PRN PRN Reason: Hypoglycemia Dextrose/Sodium Chloride (D5 1/2 Ns) 1,000 mls @ 100 mls/hr IV .Q10H [facility] Last Admin: 03/13/18 07:40 Dose: Not Given Insulin Human Lispro (Humalog) 0 units SC .MODERATE SLIDING SC PRN PRN Reason: Moderate Correctional Scale Last Admin: 03/13/18 05:43 Dose: 2 unit Insulin Human Lispro (Humalog) 0 units SC .BEDTIME SLIDING SC PRN PRN Reason: Bedtime Correctional Scale Last Admin: 03/12/18 21:20 Dose: 5 unit Iron/Minerals/Multivitamins (Theragran M) 1 tab PO DAILY [facility] Last Admin: 03/13/18 07:36 Dose: 1 tab Ketorolac Tromethamine (Toradol) 30 mg IVP Q6HR [facility] Stop: 03/14/18 06:01 Last Admin: 03/13/18 05:49 Dose: 30 mg Ketorolac Tromethamine (Toradol) 30 mg IVP Q8H PRN PRN Reason: Pain Stop: 03/17/18 14:31 Lisinopril (Zestril) 5 mg PO DAILY [facility] Last Admin: 03/13/18 07:37 Dose: 5 mg Loperamide HCl (Imodium) 2 mg PO PRN PRN PRN Reason: Diarrhea/Loose Stools Loratadine (Claritin) 10 mg PO DAILYPRN PRN PRN Reason: Sinus Symptoms Metformin HCl (Glucophage Xr) 1,000 mg PO BID-[facility] Last Admin: 03/13/18 07:36 Dose: 1,000 mg Mineral Oil/White Petrolatum (Eucerin Cream) 0 gm TOP BIDPRN PRN PRN Reason: Dry Skin Ondansetron HCl (Zofran) 4 mg IVP Q6H PRN PRN Reason: Nausea/Vomiting Ondansetron HCl (Zofran Odt) 4 mg PO Q6H PRN PRN Reason: Nausea/Vomiting Pantoprazole Sodium (Protonix) 40 mg PO DAILY [facility] Last Admin: 03/13/18 07:37 Dose: 40 mg Promethazine HCl (Phenergan) 12.5 mg IM Q4H PRN PRN Reason: Nausea Rosuvastatin Calcium (Crestor) 10 mg PO [facility] Last Admin: 03/12/18 21:14 Dose: 10 mg Senna/Docusate Sodium (Senokot S) 2 tab PO BID PRN PRN Reason: Constipation Senna/Docusate Sodium (Senokot S) 2 tab PO BID [facility] Last Admin: 03/13/18 07:36 Dose: 2 tab Sodium Chloride ([place] Nasal [place] 0.65%) 0 ml EA NARE QIDPRN PRN PRN Reason: Nasal Congestion Sodium Chloride (Flush - Normal Saline) 10 ml IVF PRN PRN PRN Reason: Saline Flush Throat Lozenges (Cepastat Lozenges) 1 zelda PO Q2H PRN PRN Reason: Sore Throat Tramadol HCl (Ultram) 50 mg PO Q6H PRN PRN Reason: Mild Pain (1-3) Tramadol HCl (Ultram) 100 mg PO Q6H PRN PRN Reason: Moderate Pain 4-6 Last Admin: 03/13/18 10:22 Dose: 100 mg Tramadol HCl (Ultram) 100 mg PO Q6H PRN PRN Reason: Moderate Pain (4-6) Zolpidem Tartrate (Ambien) 5 mg PO HSPRN PRN PRN Reason: Insomnia
[2018-03-13] MEDS ORDERED: Acetaminophen 325 MG TAB PO PRN (13:52)
[2018-03-13] MEDS: Morphine CADD 1 MG/ML CADD IV PRN (15:26)
[2018-03-13] MEDS: Rosuvastatin 10 MG TAB PO SCH (20:02)
[2018-03-14] MEDS: Morphine CADD 1 MG/ML CADD IV PRN (05:25)
[2018-03-14] MEDS: Dextrose 5 %-0.45 % NaCl 1,000 ML IV SCH ×2 (06:09→17:54)
[2018-03-14] MEDS: HumaLOG 300 UNITS/3 ML VIAL SC PRN (06:38)
[2018-03-14 07:08] LABS: Hemoglobin 11.9 g/dL (12.0-16.0); Mean Corpuscular HGB CONC 31.9 g/dL (32.0-36.0); Mean Corpuscular Hemoglobin 28.2 pg (27.0-31.0); Mean Corpuscular Volume 88.4 fL (78.0-98.0); Mean Platelet Volume 8.4 fL (7.4-10.4); Platelet Count 272 thou/uL (130-400); RBC Distribution Width 12.3 % (11.5-14.5); Red Blood Cell (RBC) Count 4.22 mill/uL (4.20-5.40); White Blood Cell (WBC) Count 9.1 thou/uL (4.8-10.8)
[2018-03-14] MEDS: Alogliptin 25 MG TAB PO SCH (08:23)
[2018-03-14] MEDS: metFORMIN XR 500 MG TAB PO SCH ×2 (08:26→19:00)
[2018-03-14] MEDS: Aspirin 81 mg Enteric Coated Tablet PO SCH ×2 (08:27→20:18)
[2018-03-14] MEDS: Ferrous Gluconate 324 MG TAB PO SCH ×2 (08:28→20:18)
[2018-03-14] MEDS: Multivitamin W/ Minerals 1 TAB PO SCH (08:28)
[2018-03-14] MEDS: Lisinopril 5 MG TAB PO SCH (08:29)
[2018-03-14] MEDS: glipiZIDE 5 MG TAB PO SCH (08:31)
[2018-03-14] MEDS: Senokot S 8.6-50 MG TAB PO SCH ×2 (08:31→20:18)
--- NOTE | 2018-03-14 09:28 | PDOC.PN ---
- Subjective Encounter Start Date: 03/14/18 Encounter Start Time: 07:10 Patient seen and examined. No new complaints. No overnight events - Objective Resuscitation Status - Order Detail: 03/12/18 14:25 Resuscitation Status Routine Resuscitation Status: FULL: Full Resuscitation MAR Reviewed: Yes Vital Signs & Weight: Vital Signs (12 hours) Temp Pulse Resp BP BP Pulse Ox 03/14/18 08:30 98.8 F 114 H 20 128/83 92 L 03/14/18 08:29 107 H 149/89 H 03/14/18 03:51 98.1 F 107 H 17 149/89 H 97 03/14/18 00:23 97.8 F 105 H 17 147/87 H 97 Weight Admit Weight 268 lb Weight 268 lb I&O: 03/13/18 03/14/18 03/15/18 06:59 06:59 06:59 Intake Total 4242 1600 2040 Output Total 3250 2300 Balance 992 -700 2040 Result Diagrams: 03/14/18 06:20 Additional Labs: Accuchecks 03/14/18 03/13/18 03/13/18 06:07 20:59 16:23 POC Glucose 176 H 218 H 190 H 03/13/18 11:04 POC Glucose 192 H Phys Exam - Physical Examination Constitutional: NAD HEENT: PERRLA, moist MMs, sclera anicteric Neck: no JVD, supple Respiratory: no wheezing, no rales, no rhonchi Cardiovascular: RRR, no significant murmur, no rub Gastrointestinal: soft, non-tender, no distention, positive bowel sounds Musculoskeletal: no edema, pulses present left knee with dressing Neurological: non-focal, normal sensation, moves all 4 limbs Lymphatic: no nodes Psychiatric: normal affect, A&O x 3 Skin: no rash, normal turgor Dx/Plan (1) Status post total left knee replacement Code(s): Z96.652 - PRESENCE OF LEFT ARTIFICIAL KNEE JOINT Status: Acute (2) Diabetes type 2, controlled Code(s): E11.9 - TYPE 2 DIABETES MELLITUS WITHOUT COMPLICATIONS Status: Chronic (3) Dyslipidemia Code(s): E78.5 - HYPERLIPIDEMIA, UNSPECIFIED Status: Chronic (4) GERD (gastroesophageal reflux disease) Code(s): K21.9 - GASTRO-ESOPHAGEAL REFLUX DISEASE WITHOUT ESOPHAGITIS Status: Chronic (5) Hypertension Code(s): I10 - ESSENTIAL (PRIMARY) HYPERTENSION Status: Chronic (6) Morbid obesity with BMI of 40.0-44.9, adult Code(s): E66.01 - MORBID (SEVERE) OBESITY DUE TO EXCESS CALORIES; Z68.41 - BODY MASS INDEX (BMI) 40.0-44.9, ADULT Status: Chronic - Plan cont current plan of care, PT/OT * medication reviewed as below * symptomatic treatment * currently on DIRECTOR OF SUSTAINABILITY * discharge per primary team * medically stable. Review of Systems - Review of Systems ENT: negative: Ear Pain, Ear Discharge, Nose Pain, Nose Discharge, Nose Congestion, Mouth Pain, Mouth Swelling, Throat Pain, Throat Swelling, Other Respiratory: negative: Cough, Dry, Shortness of Breath, Hemoptysis, SOB with Excertion, Pleuritic Pain, Sputum, Wheezing Cardiovascular: negative: chest pain, palpitations, orthopnea, paroxysmal nocturnal dyspnea, edema, light headedness, other Gastrointestinal: negative: Nausea, Vomiting, Abdominal Pain, Diarrhea, Constipation, Melena, Hematochezia, Other Genitourinary: negative: Dysuria, Frequency, Incontinence, Hematuria, Retention , Other Musculoskeletal: negative: Neck Pain, Shoulder Pain, Arm Pain, Back Pain, Hand Pain, Leg Pain, Foot Pain, Other - Medications/Allergies Allergies/Adverse Reactions: Allergies Allergy/AdvReac Type Severity Reaction Status Date / Time erythromycin base Allergy severe Verified 01/17/17 11:02 vomiting hydrocodone [From Vicodin] Allergy itching Verified 01/17/17 11:02 pecan nut Allergy Hives Verified 01/17/17 11:02 Medications: Current Medications Acetaminophen (Tylenol) 650 mg PO Q4H PRN PRN Reason: Headache/Fever/MILD PAIN Last Admin: 03/13/18 20:02 Dose: 650 mg Alogliptin Benzoate (Alogliptin) 25 mg PO DAILY [facility] Last Admin: 03/14/18 08:23 Dose: 25 mg Artificial Tears (Tears Naturale) 2 drop EA EYE PRN PRN PRN Reason: Dry Eyes Aspirin (Ecotrin) 81 mg PO BID [facility] Last Admin: 03/14/18 08:27 Dose: 81 mg Cholecalciferol (Vitamin D3) 4,000 units PO DAILY [facility] Last Admin: 03/14/18 08:32 Dose: 4,000 units Dextrose/Water (Dextrose 50%) 25 gm SLOW IVP PRN PRN PRN Reason: Hypoglycemia Diphenhydramine HCl (Benadryl) 25 mg PO Q6H PRN PRN Reason: Itching Last Admin: 03/13/18 20:01 Dose: 25 mg Ferrous Gluconate (Fergon) 324 mg PO BID [facility] Last Admin: 03/14/18 08:28 Dose: 324 mg Glipizide (Glucotrol) 5 mg PO DAILY-[facility] Last Admin: 03/14/18 08:31 Dose: 5 mg Glucagon (Glucagon) 1 mg IM PRN PRN PRN Reason: Hypoglycemia Guaifenesin (Robitussin Sf) 200 mg PO Q4H PRN PRN Reason: Cough Hydralazine HCl (Apresoline) 10 mg SLOW IVP Q4H PRN PRN Reason: SBP > 180 and HR < 70 Ropivacaine 250 ml/ Device 250 mls @ 10 mls/hr NERVE BLCK INF [facility] Last Admin: 03/13/18 12:12 Dose: 250 mls Dextrose/Water (D5w) 1,000 mls @ 0 mls/hr IV .Q0M PRN PRN Reason: Hypoglycemia Dextrose/Sodium Chloride (D5 1/2 Ns) 1,000 mls @ 100 mls/hr IV .Q10H [facility] Last Admin: 03/14/18 06:09 Dose: Not Given Insulin Human Lispro (Humalog) 0 units SC .MODERATE SLIDING SC PRN PRN Reason: Moderate Correctional Scale Last Admin: 03/14/18 06:38 Dose: 2 unit Insulin Human Lispro (Humalog) 0 units SC .BEDTIME SLIDING SC PRN PRN Reason: Bedtime Correctional Scale Last Admin: 03/13/18 21:01 Dose: 2 unit Iron/Minerals/Multivitamins (Theragran M) 1 tab PO DAILY [facility] Last Admin: 03/14/18 08:28 Dose: 1 tab Lisinopril (Zestril) 5 mg PO DAILY [facility] Last Admin: 03/14/18 08:29 Dose: 5 mg Loperamide HCl (Imodium) 2 mg PO PRN PRN PRN Reason: Diarrhea/Loose Stools Loratadine (Claritin) 10 mg PO DAILYPRN PRN PRN Reason: Sinus Symptoms Metformin HCl (Glucophage Xr) 1,000 mg PO BID-[facility] Last Admin: 03/14/18 08:26 Dose: 1,000 mg Mineral Oil/White Petrolatum (Eucerin Cream) 0 gm TOP BIDPRN PRN PRN Reason: Dry Skin Morphine Sulfate (Morphine Cadd) 0 mg IV INF PRN PRN Reason: Pain Last Admin: 03/14/18 05:25 Dose: 100 mg Ondansetron HCl (Zofran) 4 mg IVP Q6H PRN PRN Reason: Nausea/Vomiting Ondansetron HCl (Zofran Odt) 4 mg PO Q6H PRN PRN Reason: Nausea/Vomiting Pantoprazole Sodium (Protonix) 40 mg PO DAILY [facility] Last Admin: 03/14/18 08:30 Dose: 40 mg Promethazine HCl (Phenergan) 12.5 mg IM Q4H PRN PRN Reason: Nausea Rosuvastatin Calcium (Crestor) 10 mg PO [facility] Last Admin: 03/13/18 20:02 Dose: 10 mg Senna/Docusate Sodium (Senokot S) 2 tab PO BID PRN PRN Reason: Constipation Senna/Docusate Sodium (Senokot S) 2 tab PO BID [facility] Last Admin: 03/14/18 08:31 Dose: 2 tab Sodium Chloride ([place] Nasal [place] 0.65%) 0 ml EA NARE QIDPRN PRN PRN Reason: Nasal Congestion Sodium Chloride (Flush - Normal Saline) 10 ml IVF PRN PRN PRN Reason: Saline Flush Last Admin: 03/13/18 12:27 Dose: 10 ml Throat Lozenges (Cepastat Lozenges) 1 zelda PO Q2H PRN PRN Reason: Sore Throat
--- NOTE | 2018-03-14 10:33 | DIS ---
DATE OF ADMISSION: 03/12/2018 DATE OF DISCHARGE: 03/14/2018 PRIMARY CARE PHYSICIAN: Dr. Puja Jacob. DISCHARGE DISPOSITION: Home. PRIMARY DISCHARGE DIAGNOSIS: Status post left total knee replacement. SECONDARY DISCHARGE DIAGNOSES: 1. Anemia, normocytic normochromic. 2. Morbid obesity with BMI 44. 3. Diabetes type 2. 4. Hypertension. 5. Dyslipidemia. 6. Gastroesophageal reflux disease. 7. Osteoarthritis. PRIMARY PROCEDURE/OPERATION: Left total knee replacement by Dr. Jeffries. RADIOLOGICAL INVESTIGATION: Knee x-ray. SIGNIFICANT LABORATORY DATA: WBC 9.1, hemoglobin 11.9, platelet 272. Urinalysis is normal. DISCHARGE MEDICATIONS: 1. Vitamin D3 of 4000 units p.o. daily. 2. Glipizide 5 mg p.o. daily. 3. Lisinopril 5 mg p.o. daily. 4. Metformin XR 1000 mg p.o. b.i.d. 5. Omeprazole 20 mg p.o. daily. 6. Crestor 10 mg p.o. daily. 7. Januvia 100 mg p.o. daily. 8. Aspirin 81 mg p.o. b.i.d. for DVT prophylaxis. 9. Pain medication, will defer to primary team. CONTRAINDICATION: None. CODE STATUS: Full code. INPATIENT DISASTER DIRECTOR: Dr. Jeffries was primary. Sound Team was consulted for medical comanagement. TEST RESULTS PENDING ON DISCHARGE: None. ALLERGIES: ERYTHROMYCIN, HYDROCODONE. DISCHARGE PLAN: Post-hospital, the patient will follow up with Dr. Jeffries as instructed. The patient will make appointment with primary care physician. HOSPITAL COURSE: A 47-year-old female who was admitted for left total knee replacement. After surgery, Sound Team was consulted for medical comanagement. The patient was given aspirin for DVT prophylaxis. She required a LINE AND FRAME POLER pump for pain control. She also had nerve block. She did well with [facility] [place] protocol treatment. The patient's all medical problems remained stable. The patient is planned for discharge by primary team later on today. Please see my progress note from today for further detail. Job ID: [id number]
[2018-03-14] MEDS ORDERED: HYDROcodone/Acetaminophen 10/325 mg Tablet PO PRN (10:56)
[2018-03-14] MEDS ORDERED: traMADol HCl 50 MG TAB PO PRN (10:57)
[2018-03-14] MEDS: diphenhydrAMINE 25 MG CAP PO PRN ×3 (11:35→21:27)
[2018-03-14] MEDS: HYDROcodone/Acetaminophen 10/325 mg Tablet PO PRN ×3 (11:35→20:16)
[2018-03-14] MEDS: traMADol HCl 50 MG TAB PO PRN ×2 (14:52→21:28)
[2018-03-14] MEDS: Ibuprofen 200 MG TAB PO PRN ×2 (14:53→21:27)
[2018-03-14] MEDS: Rosuvastatin 10 MG TAB PO SCH (20:18)
[2018-03-15] MEDS: Dextrose 5 %-0.45 % NaCl 1,000 ML IV SCH (04:30)
[2018-03-15] MEDS: HYDROcodone/Acetaminophen 10/325 mg Tablet PO PRN ×2 (04:44→08:48)
[2018-03-15] MEDS: diphenhydrAMINE 25 MG CAP PO PRN (04:44)
[2018-03-15 06:37] LABS: Hemoglobin 11.1 g/dL (12.0-16.0); Mean Corpuscular Hemoglobin 28.9 pg (27.0-31.0); Mean Corpuscular Volume 87.7 fL (78.0-98.0); Mean Platelet Volume 8.3 fL (7.4-10.4); Platelet Count 254 thou/uL (130-400); Red Blood Cell (RBC) Count 3.83 mill/uL (4.20-5.40); White Blood Cell (WBC) Count 9.7 thou/uL (4.8-10.8)
[2018-03-15] MEDS: glipiZIDE 5 MG TAB PO SCH (06:57)
[2018-03-15] MEDS: Ferrous Gluconate 324 MG TAB PO SCH (08:03)
[2018-03-15] MEDS: metFORMIN XR 500 MG TAB PO SCH (08:03)
[2018-03-15] MEDS: Lisinopril 5 MG TAB PO SCH (08:04)
[2018-03-15] MEDS: Senokot S 8.6-50 MG TAB PO SCH (08:04)
[2018-03-15 08:05] VITALS: BP 120/61
[2018-03-15] MEDS: Multivitamin W/ Minerals 1 TAB PO SCH (08:05)
[2018-03-15] MEDS: Alogliptin 25 MG TAB PO SCH (08:05)
[2018-03-15] MEDS: Aspirin 81 mg Enteric Coated Tablet PO SCH (08:05)
[2018-03-15 09:06] VITALS: TEMP 98.6
--- NOTE | 2018-03-15 10:43 | PDOC.PN ---
- Subjective Encounter Start Date: 03/15/18 Encounter Start Time: 07:30 feels oral pain, no fever, pain controlled Patient seen and examined. No overnight events - Objective Resuscitation Status - Order Detail: 03/12/18 14:25 Resuscitation Status Routine Resuscitation Status: FULL: Full Resuscitation MAR Reviewed: Yes Vital Signs & Weight: Vital Signs (12 hours) Temp Pulse Resp BP BP Pulse Ox 03/15/18 08:04 91 120/61 03/15/18 08:00 98.6 F 99 18 120/61 91 L 03/15/18 04:22 98.3 F 91 18 114/71 98 03/15/18 00:00 98.1 F 100 16 93/59 L 97 Weight Admit Weight 268 lb Weight 268 lb I&O: 03/14/18 03/15/18 03/16/18 06:59 06:59 06:59 Intake Total 1600 3850 Output Total 2300 Balance -700 3850 Result Diagrams: 03/15/18 05:47 Additional Labs: Accuchecks 03/15/18 03/14/18 03/14/18 06:02 15:43 10:51 POC Glucose 138 H 165 H 151 H Phys Exam - Physical Examination Constitutional: NAD HEENT: PERRLA, moist MMs, sclera anicteric Neck: no JVD, supple Respiratory: no wheezing, no rales, no rhonchi Cardiovascular: RRR, no significant murmur, no rub Gastrointestinal: soft, non-tender, no distention, positive bowel sounds Musculoskeletal: no edema, pulses present Neurological: non-focal, normal sensation, moves all 4 limbs Lymphatic: no nodes Psychiatric: normal affect, A&O x 3 Skin: no rash, normal turgor Dx/Plan (1) Status post total left knee replacement Code(s): Z96.652 - PRESENCE OF LEFT ARTIFICIAL KNEE JOINT Status: Acute (2) Diabetes type 2, controlled Code(s): E11.9 - TYPE 2 DIABETES MELLITUS WITHOUT COMPLICATIONS Status: Chronic (3) Dyslipidemia Code(s): E78.5 - HYPERLIPIDEMIA, UNSPECIFIED Status: Chronic (4) GERD (gastroesophageal reflux disease) Code(s): K21.9 - GASTRO-ESOPHAGEAL REFLUX DISEASE WITHOUT ESOPHAGITIS Status: Chronic (5) Hypertension Code(s): I10 - ESSENTIAL (PRIMARY) HYPERTENSION Status: Chronic (6) Morbid obesity with BMI of 40.0-44.9, adult Code(s): E66.01 - MORBID (SEVERE) OBESITY DUE TO EXCESS CALORIES; Z68.41 - BODY MASS INDEX (BMI) 40.0-44.9, ADULT Status: Chronic - Plan cont current plan of care * medication reviewed as below * symptomatic treatment * nystatin as needed * stable for discharge. Review of Systems - Review of Systems ENT: negative: Ear Pain, Ear Discharge, Nose Pain, Nose Discharge, Nose Congestion, Mouth Pain, Mouth Swelling, Throat Pain, Throat Swelling, Other Respiratory: negative: Cough, Dry, Shortness of Breath, Hemoptysis, SOB with Excertion, Pleuritic Pain, Sputum, Wheezing Cardiovascular: negative: chest pain, palpitations, orthopnea, paroxysmal nocturnal dyspnea, edema, light headedness, other Gastrointestinal: negative: Nausea, Vomiting, Abdominal Pain, Diarrhea, Constipation, Melena, Hematochezia, Other Genitourinary: negative: Dysuria, Frequency, Incontinence, Hematuria, Retention , Other Musculoskeletal: negative: Neck Pain, Shoulder Pain, Arm Pain, Back Pain, Hand Pain, Leg Pain, Foot Pain, Other Skin: negative: Rash, Lesions, Erich, Bruising, Other - Medications/Allergies Allergies/Adverse Reactions: Allergies Allergy/AdvReac Type Severity Reaction Status Date / Time erythromycin base Allergy severe Verified 01/17/17 11:02 vomiting hydrocodone [From Vicodin] Allergy itching Verified 01/17/17 11:02 pecan nut Allergy Hives Verified 01/17/17 11:02 Medications: Current Medications Acetaminophen (Tylenol) 650 mg PO Q4H PRN PRN Reason: Headache/Fever/MILD PAIN Last Admin: 03/13/18 20:02 Dose: 650 mg Hydrocodone Bitart/Acetaminophen ([place] 10/325) 1 tab PO Q4H PRN PRN Reason: Pain 2-4 Hydrocodone Bitart/Acetaminophen ([place] 10/325) 2 tab PO Q4H PRN PRN Reason: Pain 5-7 Last Admin: 03/15/18 08:48 Dose: 2 tab Alogliptin Benzoate (Alogliptin) 25 mg PO DAILY [facility] Last Admin: 03/15/18 08:05 Dose: 25 mg Artificial Tears (Tears Naturale) 2 drop EA EYE PRN PRN PRN Reason: Dry Eyes Aspirin (Ecotrin) 81 mg PO BID [facility] Last Admin: 03/15/18 08:05 Dose: 81 mg Cholecalciferol (Vitamin D3) 4,000 units PO DAILY [facility] Last Admin: 03/15/18 08:04 Dose: 4,000 units Dextrose/Water (Dextrose 50%) 25 gm SLOW IVP PRN PRN PRN Reason: Hypoglycemia Diphenhydramine HCl (Benadryl) 25 mg PO Q6H PRN PRN Reason: Itching Last Admin: 03/15/18 04:44 Dose: 25 mg Ferrous Gluconate (Fergon) 324 mg PO BID [facility] Last Admin: 03/15/18 08:03 Dose: 324 mg Glipizide (Glucotrol) 5 mg PO DAILY-[facility] Last Admin: 03/15/18 06:57 Dose: 5 mg Glucagon (Glucagon) 1 mg IM PRN PRN PRN Reason: Hypoglycemia Guaifenesin (Robitussin Sf) 200 mg PO Q4H PRN PRN Reason: Cough Hydralazine HCl (Apresoline) 10 mg SLOW IVP Q4H PRN PRN Reason: SBP > 180 and HR < 70 Ropivacaine 250 ml/ Device 250 mls @ 10 mls/hr NERVE BLCK INF [facility] Last Admin: 03/13/18 12:12 Dose: 250 mls Dextrose/Water (D5w) 1,000 mls @ 0 mls/hr IV .Q0M PRN PRN Reason: Hypoglycemia Dextrose/Sodium Chloride (D5 1/2 Ns) 1,000 mls @ 100 mls/hr IV .Q10H [facility] Last Admin: 03/15/18 04:30 Dose: Not Given Ibuprofen (Motrin) 400 mg PO Q6H PRN PRN Reason: Pain Last Admin: 03/14/18 21:27 Dose: 400 mg Insulin Human Lispro (Humalog) 0 units SC .MODERATE SLIDING SC PRN PRN Reason: Moderate Correctional Scale Last Admin: 03/14/18 06:38 Dose: 2 unit Insulin Human Lispro (Humalog) 0 units SC .BEDTIME SLIDING SC PRN PRN Reason: Bedtime Correctional Scale Last Admin: 03/13/18 21:01 Dose: 2 unit Iron/Minerals/Multivitamins (Theragran M) 1 tab PO DAILY [facility] Last Admin: 03/15/18 08:05 Dose: 1 tab Lisinopril (Zestril) 5 mg PO DAILY [facility] Last Admin: 03/15/18 08:04 Dose: 5 mg Loperamide HCl (Imodium) 2 mg PO PRN PRN PRN Reason: Diarrhea/Loose Stools Loratadine (Claritin) 10 mg PO DAILYPRN PRN PRN Reason: Sinus Symptoms Metformin HCl (Glucophage Xr) 1,000 mg PO BID-[facility] Last Admin: 03/15/18 08:03 Dose: 1,000 mg Mineral Oil/White Petrolatum (Eucerin Cream) 0 gm TOP BIDPRN PRN PRN Reason: Dry Skin Ondansetron HCl (Zofran) 4 mg IVP Q6H PRN PRN Reason: Nausea/Vomiting Ondansetron HCl (Zofran Odt) 4 mg PO Q6H PRN PRN Reason: Nausea/Vomiting Pantoprazole Sodium (Protonix) 40 mg PO DAILY [facility] Last Admin: 03/15/18 08:03 Dose: 40 mg Promethazine HCl (Phenergan) 12.5 mg IM Q4H PRN PRN Reason: Nausea Rosuvastatin Calcium (Crestor) 10 mg PO [facility] Last Admin: 03/14/18 20:18 Dose: 10 mg Senna/Docusate Sodium (Senokot S) 2 tab PO BID PRN PRN Reason: Constipation Senna/Docusate Sodium (Senokot S) 2 tab PO BID [facility] Last Admin: 03/15/18 08:04 Dose: 2 tab Sodium Chloride ([place] Nasal [place] 0.65%) 0 ml EA NARE QIDPRN PRN PRN Reason: Nasal Congestion Sodium Chloride (Flush - Normal Saline) 10 ml IVF PRN PRN PRN Reason: Saline Flush Last Admin: 03/13/18 12:27 Dose: 10 ml Throat Lozenges (Cepastat Lozenges) 1 zelda PO Q2H PRN PRN Reason: Sore Throat Tramadol HCl (Ultram) 50 mg PO Q6H PRN PRN Reason: Pain 2-4 Tramadol HCl (Ultram) 100 mg PO Q6H PRN PRN Reason: Pain 5-7 Last Admin: 03/14/18 21:28 Dose: 100 mg
--- NOTE | 2018-03-15 11:45 | DIS ---
DATE OF ADMISSION: 03/12/2018 DATE OF DISCHARGE: 03/15/2018 CONSULTANTS: [facility] and [place] [facility]. PREOPERATIVE DIAGNOSIS: Left knee degenerative arthritis. POSTOPERATIVE DIAGNOSIS: Left knee degenerative arthritis. PROCEDURE PERFORMED: Left total knee replacement. BRIEF HOSPITAL COURSE: This is a 47-year-old female, who was indicated for the above-mentioned procedure. She did well operatively. Postoperatively, she was admitted to the surgical floor, where she worked with Physical and Occupational Therapy in [facility]. Pain was controlled by [facility]. She also received postoperative antibiotics. On postoperative day 3, the patient was discharged home with followup for outpatient physical therapy. No complications were incurred during her hospital course. DISCHARGE DISPOSITION: Home. DISCHARGE CONDITION: Stable. DISCHARGE INSTRUCTIONS: The patient will follow up with Dr. Jeffries as scheduled. She will also follow up with Physical Therapy as scheduled. She will keep her dressing clean, dry, and intact until followup. DISCHARGE MEDICATIONS: See MAR. Job ID: [id number]
== END 2018-03-15 10:47 | disposition home health service (06) | DRG 470 ==
LOC: SURG A 03-12 06:16 → EDSTATUS 03-12 08:45 → SJJU 03-12 14:14
PROVIDERS: ADMIT Orthopaedic Surgery; ATTEND Orthopaedic Surgery
PROC: 0SRD0J9 Replacement of Left Knee Joint with Synthetic Substitute, Cemented, Open Approach (ICD-10-PCS; principal; 2018-03-12)
DX: M17.12 Unilateral primary osteoarthritis, left knee (principal); Z68.41 Body mass index [BMI] 40.0-44.9, adult; E11.9 Type 2 diabetes mellitus without complications; E78.5 Hyperlipidemia, unspecified; K21.9 Gastro-esophageal reflux disease without esophagitis; I10 Essential (primary) hypertension; E66.01 Morbid (severe) obesity due to excess calories; D64.9 Anemia, unspecified; Z88.1 Allergy status to other antibiotic agents; Z88.5 Allergy status to narcotic agent
CPT/HCPCS: 36415; 36416; 81001; 85027; C1713; C1776; J0131; J0670; J1100; J1885; J1956; J2175; J2250; J2274; J2405; J2704; J2795; J3010; J3370; J7050; Q0163

== ENCOUNTER 2018-04-08 15:23 | Emergency (ER) | payer OTHER ==
[2018-04-08] MEDS ORDERED: Ketorolac Tromethamine 30 MG/ML VIAL ONE (15:46)
[2018-04-08] MEDS ORDERED: Lidocaine 1% 20 ML MDV ONE (15:46)
[2018-04-08] MEDS ORDERED: Fentanyl 100 MCG/2 ML VIAL ONE (15:54)
== END 2018-04-08 17:12 | disposition home or self-care (01) ==
LOC: SCSER 15:23
DX: K61.1 Rectal abscess (principal); E11.9 Type 2 diabetes mellitus without complications; E78.5 Hyperlipidemia, unspecified; F17.210 Nicotine dependence, cigarettes, uncomplicated; Z79.899 Other long term (current) drug therapy; Z79.84 Long term (current) use of oral hypoglycemic drugs
CPT/HCPCS: 46050; 96372; J1885; J2001; J3010

== ENCOUNTER 2018-07-02 09:37 | Outpatient (CLI) | payer OTHER ==
--- NOTE | 2018-07-02 10:43 | MMO ---
Bilateral MAMMO Bilat Screen DDI+MIS. CLINICAL HISTORY: Patient is 47 years old and is seen for screening. The patient has the following family history of breast cancer: maternal grandmother. The patient has no personal history of cancer. VIEWS: The views performed were: bilateral craniocaudal with tomosynthesis and bilateral mediolateral oblique with tomosynthesis. FILMS COMPARED: The present examination has been compared to a prior imaging study performed at [facility] on 06/29/2017. MAMMOGRAM FINDINGS: There are scattered fibroglandular densities. There are no suspicious masses, calcifications or areas of architectural distortion. Stable 2.0 cm right breast mass. There are benign appearing calcifications in both breasts. There are no suspicious masses, suspicious calcifications, or new areas of architectural distortion. IMPRESSION: THERE IS NO MAMMOGRAPHIC EVIDENCE OF MALIGNANCY. A ROUTINE FOLLOW-UP MAMMOGRAM IN 1 YEAR IS RECOMMENDED. THE RESULTS OF THIS EXAM WERE SENT TO THE PATIENT. ACR BI-RADS Category 2 - Benign finding MAMMOGRAPHY NOTE: 1. A negative mammogram report should not delay a biopsy if a dominant of clinically suspicious mass is present. 2. Approximately 10% to 15% of breast cancers are not detected by mammography. 3. Adenosis and dense breasts may obscure an underlying neoplasm.
== END 2018-07-02 09:38 | disposition home or self-care (01) ==
LOC: BICMAMMO 09:37
PROVIDERS: ATTEND Internal Medicine
DX: Z12.31 Encounter for screening mammogram for malignant neoplasm of breast (principal); Z80.3 Family history of malignant neoplasm of breast
CPT/HCPCS: 77063; 77067

== ENCOUNTER 2018-07-03 14:26 | Outpatient (CLI) | payer OTHER ==
--- NOTE | 2018-07-03 15:23 | ULT ---
GALLBLADDER ULTRASOUND: HISTORY: Right upper quadrant abdominal pain FINDINGS: The liver demonstrates increased echogenicity without focal mass or intrahepatic biliary ductal dilat ation. No gallstones, gallbladder wall thickening or pericholecystic fluid are seen. The right kidney and visualized portions of the pancreas are normal. The common duct [id number] in diameter. No free fluid is seen in the Sarabia's pouch. IMPRESSION: 1. Fatty liver 2. No evidence of cholelithiasis
== END 2018-07-03 14:27 | disposition home or self-care (01) ==
LOC: ULT 14:26
PROVIDERS: ATTEND Internal Medicine
DX: R10.11 Right upper quadrant pain (principal); K76.0 Fatty (change of) liver, not elsewhere classified
CPT/HCPCS: 36415; 76705; 80053; 81001; 82043; 82728; 82977; 83540; 83550; 83690; 85025; 87086

== ENCOUNTER 2018-07-04 11:57 | Outpatient (CLI) | payer OTHER ==
[~2018-07-04 11:57] MED LIST: Iopamidol 370 76% 100 ML VIAL ONE
--- NOTE | 2018-07-04 15:50 | CT ---
CT ABDOMEN AND PELVIS WITH ORAL AND IV CONTRAST: HISTORY: Right upper quadrant pain, fever, nausea, elevated WBCs. FINDINGS: Comparison is made with the exam of 11/06/2017. The lung bases are clear. Fatty infiltration of the liver is again seen without evidence of focal ma ss or intrahepatic ductal dilatation. The spleen is enlarged measuring 14.3 cm in length. The pancr eas, adrenal glands, and kidneys are normal. No calcified gallstones are seen. No free air, free fluid, or lymphadenopathy is seen in the abdomen or pelvis. Small bowel loops are not abnormally dilated. A normal appendix is not seen. A uterus and ovaries are visualized. There is mild degenerative change in the spine. The liver measures 27 cm in length. A fat-containing vent ral hernia is again seen. IMPRESSION: 1. Hepatosplenomegaly. 2. Fatty liver. 3. Fat-containing ventral hernia. POS: OFF
== END 2018-07-04 11:58 | disposition home or self-care (01) ==
LOC: SCSCT 11:57
PROVIDERS: ATTEND Internal Medicine
DX: R10.9 Unspecified abdominal pain (principal); K76.0 Fatty (change of) liver, not elsewhere classified; R16.2 Hepatomegaly with splenomegaly, not elsewhere classified; K43.9 Ventral hernia without obstruction or gangrene
CPT/HCPCS: 74177; Q9967

== ENCOUNTER 2018-07-22 18:23 | Inpatient (IN) | payer OTHER ==
[2018-07-22] MEDS ORDERED: Morphine 4 MG/ML VIAL ONE ×3 (18:58→23:06)
[2018-07-22] MEDS ORDERED: Ondansetron PF 4 MG/2 ML Vial ONE ×3 (18:58→23:07)
[2018-07-22 19:11] LABS: #Eosinphils 0.3 thou/uL (0.0-0.7); #Lymphocytes 2.4 thou/uL (1.20-3.40); #Monocytes 0.8 thou/uL (0.11-0.59); #Neutrophils 10.4 thou/uL (1.40-6.50); %Basophils 0.1 % (0.0-1.0); %Eosinophils 2.5 % (0.0-10.0); %Lymphocytes 17.1 % (21.0-51.0); %Monocytes 5.4 % (0.0-10.0); %Neutrophils 74.9 % (42.0-75.0); Hemoglobin 11.9 g/dL (12.0-16.0); Mean Corpuscular HGB CONC 31.6 g/dL (32.0-36.0); Mean Corpuscular Hemoglobin 22.3 pg (27.0-31.0); Mean Corpuscular Volume 70.4 fL (78.0-98.0); Mean Platelet Volume 10.4 fL (7.4-10.4); Platelet Count 381 thou/uL (130-400); RBC Distribution Width 18.3 % (11.5-14.5); Red Blood Cell (RBC) Count 5.34 mill/uL (4.20-5.40); White Blood Cell (WBC) Count 13.8 thou/uL (4.8-10.8)
[2018-07-22 19:15] LABS: BHCG - Serum Negative (NEGATIVE); Pregs Control Background? CLEAR/WHITE (CLR/WHITE); Pregs Control Bar Appear? YES (CONTROL BAR)
[2018-07-22 19:23] LABS: PTT 26.2 SEC (22.9-36.1)
[2018-07-22 19:26] LABS: Prothrombin Time 13.4 SEC (12.0-14.7)
[2018-07-22 19:27] LABS: ALT (SGPT) 19 U/L (8-55); AST (SGOT) 16 U/L (5-34); Albumin 4.2 g/dL (3.5-5.0); Alkaline Phosphatase 146 U/L (40-150); Anion Gap 14 mmol/L (10-20); BUN (Urea Nitrogen) 10 mg/dL (7.0-18.7); Bilirubin, Total 0.5 mg/dL (0.2-1.2); Calc. Creatinine Clearance 0 mL/min (70-130); Carbon Dioxide 24 mmol/L (22-29); Chloride 102 mmol/L (98-107); Estimated GFR-MDRD Greater than 90; Globulin 3.6 g/dL (2.4-3.5); Glucose 117 mg/dL (70-105); Lipase 47 U/L (8-78); Potassium 3.9 mmol/L (3.5-5.1); Protein, Total 7.8 g/dL (6.0-8.3); Sodium 136 mmol/L (136-145)
--- NOTE | 2018-07-22 19:43 | ULT ---
GALLBLADDER ULTRASOUND: 07/22/18 HISTORY: Right upper quadrant pain. COMPARISON: 07/04/18 CT examination. Real time imaging of the right upper quadrant shows somewhat heterogeneous echogenic appearance to th e liver parenchyma compatible with fatty change. The gallbladder shows no signs of stones. The common duct is normal in caliber at 3 mm. Slightly hyperechoic area is seen within the right lobe of the li theodore, but in reviewing the previous CT, do not see any findings. This is probably just related to the liver heterogeneity. The right kidney is normal in size and not obstructed. Pancreas is obscured. IMPRESSION: Unremarkable right upper quadrant ultrasound. POS: [facility]
--- NOTE | 2018-07-22 22:20 | CT ---
CT OF ABDOMEN AND PELVIS PERFORMED WITH CONTRAST ENHANCEMENT: HISTORY: Right-sided abdomen pain. COMPARISON: A 07/04/2018 study. FINDINGS: Lung bases show some linear scarring in the left base. There are diffuse fatty changes of the liver which is enlarged. There is an elongated right lobe. T he spleen is also enlarged. It measures 13.8 cm in length. Pancreas and gallbladder regions appear unremarkable. Right and left adrenal glands and right and left kidneys are normal in appearance. There is no signi ficant periaortic adenopathy. Small mesenteric nodes are nonspecific and unchanged since the previou s exam. CT OF PELVIS PERFORMED WITH CONTRAST ENHANCEMENT: There are is some mild distention of some of the small bowel loops, nonspecific but possibly related to an enteritis. No evidence of any significant free fluid or mass. No inflammatory process. Jojo ramirez is difficult to visualize, but I see what I believe to be a portion of a nondistended appendix. I do not see any inflammatory change. IMPRESSION: 1. Some mild fluid-filled small bowel loops raising the possibility of an enteritis. 2. Fatty change of the liver with hepatosplenomegaly. 3. Fat-containing periumbilical hernia. POS: [facility]
[2018-07-22] MEDS ORDERED: Acetaminophen 325 MG TAB PO PRN (23:49)
[2018-07-22] MEDS ORDERED: Senokot S 8.6-50 MG TAB PO PRN (23:49)
[2018-07-23 00:41] VITALS: BMI 39.2
[2018-07-23] MEDS: Sodium Chloride 0.9% 1,000 ML IV SCH ×2 (00:48→13:09)
[2018-07-23] MEDS: Ondansetron PF 4 MG/2 ML Vial IVP PRN ×3 (01:50→17:32)
[2018-07-23] MEDS: Fentanyl 100 MCG/2 ML VIAL SLOW IVP PRN ×4 (01:56→20:25)
[2018-07-23 05:26] LABS: #Eosinphils 0.4 thou/uL (0.0-0.7); #Lymphocytes 1.7 thou/uL (1.20-3.40); #Monocytes 0.5 thou/uL (0.11-0.59); #Neutrophils 7.4 thou/uL (1.40-6.50); %Basophils 0.1 % (0.0-1.0); %Eosinophils 4.2 % (0.0-10.0); %Lymphocytes 16.6 % (21.0-51.0); %Monocytes 5.3 % (0.0-10.0); %Neutrophils 73.8 % (42.0-75.0); Hemoglobin 10.4 g/dL (12.0-16.0); Mean Corpuscular HGB CONC 29.7 g/dL (32.0-36.0); Mean Corpuscular Hemoglobin 20.9 pg (27.0-31.0); Mean Corpuscular Volume 70.5 fL (78.0-98.0); Platelet Count 333 thou/uL (130-400); RBC Distribution Width 18.6 % (11.5-14.5); Red Blood Cell (RBC) Count 4.99 mill/uL (4.20-5.40)
[2018-07-23 05:48] LABS: Anion Gap 13 mmol/L (10-20); BUN (Urea Nitrogen) 10 mg/dL (7.0-18.7); Calc. Creatinine Clearance 182 mL/min (70-130); Calcium 9.2 mg/dL (7.8-10.44); Carbon Dioxide 23 mmol/L (22-29); Chloride 102 mmol/L (98-107); Estimated GFR-MDRD Greater than 90; Glucose 132 mg/dL (70-105); Potassium 3.8 mmol/L (3.5-5.1); Sodium 134 mmol/L (136-145)
[2018-07-23] MEDS ORDERED: Promethazine HCl 25 MG/ML VIAL IVPB SCH (06:15)
[2018-07-23] MEDS ORDERED: Promethazine HCl 12.5 MG in Sodium Chloride 0.9% 50 ML IVPB SCH (06:15)
[2018-07-23] MEDS: Heparin 5,000 UNITS/ML VIAL SC SCH ×3 (08:35→20:27)
[2018-07-23] MEDS: Famotidine/PF 20 mg/2ml Vial SLOW IVP SCH ×2 (08:35→20:27)
[2018-07-23] MEDS ORDERED: Dextrose 50% Abboject 50 ML SYRINGE SLOW IVP PRN (17:55)
[2018-07-23] MEDS ORDERED: HumaLOG 300 UNITS/3 ML VIAL SC PRN ×2 (17:55)
[2018-07-23] MEDS ORDERED: Dextrose 5% in Water 1,000 ML IV PRN (17:55)
[2018-07-23] MEDS: Rosuvastatin 20 MG TAB PO SCH (20:26)
[2018-07-23] MEDS: Metoclopramide HCl 10 MG/2 ML VIAL IVP SCH (20:27)
--- NOTE | 2018-07-23 22:50 | CON ---
DATE OF CONSULTATION: 07/23/2018 REASON FOR CONSULTATION: Nausea and abdominal pain. HISTORY OF PRESENT ILLNESS: Samantha Miranda is a 47-year-old woman, whom I know from the outpatient GI setting. I recently performed some evaluation for recurrent symptoms of epigastric pain and nausea. She essentially has some chronic low-level abdominal discomfort and mild nausea punctuated by episodes of more severe pain and nausea. She does have a microcytic anemia as well. I performed EGD and colonoscopy just last week on 07/19/2018. The EGD was completely normal. Duodenal biopsies were normal. The colonoscopy showed 11 polyps ranging up to 1 cm in size. These were all completely removed. The colonoscopy was otherwise normal. The polyps are mixture of adenomas and sessile serrated polyps with a couple of hyperplastic polyps as well. The patient states she was doing just fine over the weekend, but starting yesterday, she again started to have epigastric pain and nausea. This became quite severe, more severe than it had ever been and she had several episodes of emesis, which was clear and dark in color. She presented for evaluation. Laboratory studies are essentially unremarkable with normal LFTs and lipase. An abdominal ultrasound was normal and a CT of the abdomen and pelvis only shows some mild fluid-filled small bowel loops, but no inflammatory changes. No evidence of obstruction. No other pathology. She has been receiving fentanyl and Zofran and today is feeling quite a bit better. She has remained on a clear liquid diet. She is starting to get hungry again. REVIEW OF SYSTEMS: Full review of systems including constitutional, head, eyes, ears, nose, throat, GI, , cardiovascular, respiratory, musculoskeletal, neurologic systems is negative except as noted in the HPI. PAST MEDICAL HISTORY: Diabetes type 2; fatty liver; hemorrhoids; hyperlipidemia; arthritis; GERD; microcytic anemia; colon polyps, status post colonoscopy on 07/19/2018; obesity. FAMILY HISTORY: Her father and mother had colon polyps. SOCIAL HISTORY: She will rarely drink wine or liquor. She does smoke. ALLERGIES: PECANS, HYDROCODONE, ERYTHROMYCIN BASE. OUTPATIENT MEDICATIONS: 1. Fish oil. 2. Cinnamon bark. 3. Victoza. 4. Iron 325 mg b.i.d. 5. Lisinopril. 6. Vitamin D3. 7. Sitagliptin (Januvia). 8. Metformin XR. 9. Crestor. 10. Omeprazole 20 mg daily. PHYSICAL EXAMINATION: VITAL SIGNS: Temperature 98.2, pulse 85, blood pressure 98/51, 97% oxygen saturation on room air. GENERAL: A 47-year-old woman, lying in bed comfortably, in no distress. SKIN: No jaundice. No rashes were palpable. HEENT: Eyes; no scleral icterus. Extraocular movements intact. ENT: Mucous membranes moist. No oral lesions. LYMPHATIC: No submandibular or supraclavicular lymphadenopathy. Thyroid nontender to palpation. HEART: Regular rate and rhythm. LUNGS: Clear to auscultation bilaterally. ABDOMEN: Bowel sounds are present. Soft. Some tenderness to palpation in the epigastrium, but no guarding or rebound tenderness. EXTREMITIES: No peripheral edema. VESSELS: Radial pulses 2+ bilaterally. NEUROLOGIC: Cranial nerves 2 through 12 intact bilaterally. No focal deficits. LABORATORY STUDIES: WBC 10.0, hemoglobin 10.4, MCV 70.5, platelets 333. BUN 10, creatinine 0.63, sodium 134, potassium 3.8. LFTs all normal with total bilirubin 0.5, alkaline phosphatase 146, AST 16, ALT 19, albumin 4.2. Lipase 47. test negative. INR 1.0. IMAGING STUDIES: Abdominal ultrasound is normal. CT of the abdomen and pelvis showed fatty liver and splenomegaly. There is mild fluid-filled small bowel loops, but no inflammatory changes. CT is otherwise unremarkable. ASSESSMENT AND PLAN: 1. Nausea and vomiting. 2. Upper abdominal pain. The patient and I reviewed her as yet unrevealing fairly extensive workup over the past few months with normal ultrasound, LFTs, and lipase. Biliary etiology seems less likely. Chronic cholecystitis remains a possibility and I would recommend going ahead and getting a HIDA scan to assess for this possibility. I have gone ahead and ordered this. The EGD and colonoscopy were unrevealing. Also, have some suspicion for possible gastroparesis. We would plan on gastric emptying study on an outpatient basis and we should continue to plan for this. I think aside from the HIDA scan, another thing we can do would be to trial IV Reglan while she is here. We will give 5 mg IV q.8 hours and see how she does with this. We will keep her on a liquid diet for now, but if she is feeling up to it tomorrow, we could advance the diet as tolerated and if the HIDA scan turns out okay, potentially hope for discharge later tomorrow for further outpatient followup. Thank you for the consultation. Please call back anytime with questions or concerns. Job ID: [id number]
[2018-07-24] MEDS: Fentanyl 100 MCG/2 ML VIAL SLOW IVP PRN ×3 (02:13→16:51)
[2018-07-24] MEDS: Sodium Chloride 0.9% 1,000 ML IV SCH ×2 (02:13→14:16)
[2018-07-24] MEDS: Ondansetron PF 4 MG/2 ML Vial IVP PRN ×2 (03:33→12:11)
[2018-07-24] MEDS: Metoclopramide HCl 10 MG/2 ML VIAL IVP SCH ×2 (05:19→13:11)
--- NOTE | 2018-07-24 08:22 | HP ---
PRIMARY CARE PHYSICIAN: Dr. Jacob. CHIEF COMPLAINT: Abdominal pain, nausea, and vomiting. HISTORY OF PRESENT ILLNESS: Ms. Miranda is a 47-year-old female with past medical history that includes diabetes type 2, has an abdominal hernia which is reducible, has a history of hyperlipidemia, also has a factor 8 deficiency, reported to the emergency room yesterday on 07/22/2018, for evaluation of worsening abdominal pain, nausea, and vomiting. Reports this has been ongoing for the last several weeks. She was evaluated by BO Reyes, who took her for an EGD and colonoscopy last Sunday. Reports that she had some polyps, but nothing concerning. She denies any fevers or chills. She reports that she has a decreased appetite. The patient's evaluation in the ER included a gallbladder ultrasound which was unremarkable. The patient also had an abdominal pelvis CT. Impression; mild fluid-filled small bowel loops, raising the possibility of enteritis; fatty change of the liver with hepatosplenomegaly, fat containing periumbilical hernia. The patient initially had a white blood cell count of 13.8, which dropped to 10 with morning labs on 07/23/2018, does show some anemia. Otherwise, labs are unremarkable. Lipase 47. Liver enzymes unremarkable. She was given several doses of morphine and Zofran in the emergency room without any relief of symptoms. The patient was subsequently admitted to the observation unit for further management. P.o. and IV pain medications. Fluid hydration at 75 mL per hour. Several antiemetics were started with some mild success. The patient reports that pain is usually worse after she eats. Raising the concern for potential gallstone that was undetected in the ultrasound or CT scan. The patient was admitted to the observation unit for further management. PAST MEDICAL HISTORY: As above. Diabetes, GERD, has a periumbilical hernia, hyperlipidemia, factor 8 deficiency. PAST SURGICAL HISTORY: Orthopedic surgery, left ankle, left shoulder, right elbow, right wrist. LASIK surgery, bilateral eyes. Deviated septum repair, left knee replacement. PSYCHIATRIC HISTORY: None. SOCIAL HISTORY: Drinks rarely. Does smoke half pack per day. KNOWN ALLERGIES: Erythromycin, hydrocodone. HOME MEDICATIONS: 1. Vitamin D 4000 units p.o. daily. 2. Cinnamon 1000 mg p.o. daily. 3. Iron 325 mg p.o. b.i.d. 4. Fish oil 2000 mg p.o. daily. 5. Victoza 1.2 mg subcu daily. 6. Zestril 5 mg p.o. daily. 7. Metformin XR two tabs p.o. b.i.d. 8. Prilosec 20 mg p.o. daily. 9. Crestor 20 mg at bedtime. 10. Januvia 100 mg p.o. daily. REVIEW OF SYSTEMS: The patient reports abdominal pain, anorexia, reports nausea and vomiting. Denies diarrhea. Reports anemia. Denies fever or chills. Reports right upper quadrant abdominal pain. All other systems reviewed and negative other than what is mentioned in the HPI. PHYSICAL EXAMINATION: VITAL SIGNS: Blood pressure 113/75, pulse is 112, respirations 22, temperature is 98.3, pO2 sats 93% on room air. CONSTITUTIONAL: The patient is alert and oriented to person, place, and time, is in no obvious distress, is in mild pain distress. HEENT: Head is atraumatic and normocephalic. Eyes; eyelids normal to inspection. Pupils are equally round and reactive to light. ENT; mouth exam is normal, mucous membranes are moist. NECK: Normal range of motion. Trachea is midline. RESPIRATORY/CHEST: Breath sounds are clear. No signs of any respiratory distress. CARDIOVASCULAR: Regular heart rate and rhythm. Heart sounds are normal. ABDOMEN: Mild tenderness in right upper quadrant. Bowel sounds are heard. BACK: Normal inspection. Normal range of motion. EXTREMITIES: Upper extremity, normal inspection, normal range of motion, radial pulses equal bilaterally. Lower extremity, normal inspection, normal range of motion, pedal pulses equal, no edema is noted. NEUROLOGIC: The patient is oriented to person, place, and time. Speech is normal. Cranial nerves 2 through 12 are grossly intact. SKIN: Warm, dry, normal in color. PSYCHIATRIC: The patient is alert and oriented to person, place, and time. Normal affect. ASSESSMENT AND PLAN: 1. Intractable abdominal pain. Pain medications and antiemetics have been ordered. Pepcid 20 mg p.o. b.i.d., clear liquid diet. Dr. Jones saw her on Sunday. We will consult and get his opinion. We appreciate his recommendations. 2. Diabetes type 2. Accu-Cheks before meals at night. We will stop her home p.o. medications. Add sliding scale, mild scale for coverage. 3. Hyperlipidemia. We will restart her Crestor. 4. Deep venous thrombosis prophylaxis will be started. 5. Hospital course will be dependent on clinical findings. Job ID: [id number]
[2018-07-24] MEDS: Famotidine/PF 20 mg/2ml Vial SLOW IVP SCH ×2 (08:29→20:10)
[2018-07-24] MEDS: Heparin 5,000 UNITS/ML VIAL SC SCH ×3 (08:29→19:59)
[2018-07-24] MEDS: Lisinopril 5 MG TAB PO SCH (08:30)
[2018-07-24 13:14] LABS: #Eosinphils 0.4 thou/uL (0.0-0.7); #Monocytes 0.4 thou/uL (0.11-0.59); #Neutrophils 3.7 thou/uL (1.40-6.50); %Basophils 0.1 % (0.0-1.0); %Eosinophils 6.8 % (0.0-10.0); %Lymphocytes 30.6 % (21.0-51.0); %Neutrophils 56.5 % (42.0-75.0); Hemoglobin 9.8 g/dL (12.0-16.0); Mean Corpuscular HGB CONC 31.1 g/dL (32.0-36.0); Mean Corpuscular Volume 70.7 fL (78.0-98.0); Mean Platelet Volume 10.9 fL (7.4-10.4); Platelet Count 254 thou/uL (130-400); RBC Distribution Width 18.1 % (11.5-14.5); Red Blood Cell (RBC) Count 4.48 mill/uL (4.20-5.40); White Blood Cell (WBC) Count 6.6 thou/uL (4.8-10.8)
--- NOTE | 2018-07-24 13:39 | NM ---
NUCLEAR MEDICINE HEPATOBILIARY SCAN: 07/24/18 HISTORY: 47-year-old female with upper abdominal pain, nausea, and vomiting. TECHNIQUE: [id number] dose: 5.1 mCi Kinevac (CCK analog) dose: 2.1 mcg [id number] injected IV. Dynamic anterior scintigraphy of abdomen for 1 hour. Kinevac injected. Additional dynamic anterior scintigraphy of abdomen. Counts obtained over gallbladder. Time-activity curve generated. FINDINGS: There is normal uptake and washout of activity at the liver. The gallbladder appears early and fills normally. Bowel activity is visualized after CCK injection. Gallbladder ejection fraction is 30%. IMPRESSION: Abnormally low gallbladder ejection fraction of 30%. LISSA Dwyer POS: [facility]
[2018-07-24 13:40] LABS: ALT (SGPT) 14 U/L (8-55); AST (SGOT) 14 U/L (5-34); Albumin 3.6 g/dL (3.5-5.0); Alkaline Phosphatase 115 U/L (40-150); Anion Gap 13 mmol/L (10-20); BUN (Urea Nitrogen) 5 mg/dL (7.0-18.7); Bilirubin, Total 0.2 mg/dL (0.2-1.2); Calc. Creatinine Clearance 167 mL/min (70-130); Carbon Dioxide 25 mmol/L (22-29); Chloride 105 mmol/L (98-107); Estimated GFR-MDRD 90; Glucose 174 mg/dL (70-105); Potassium 3.8 mmol/L (3.5-5.1); Protein, Total 6.6 g/dL (6.0-8.3); Sodium 139 mmol/L (136-145)
--- NOTE | 2018-07-24 14:48 | PRG ---
DATE OF SERVICE: 07/24/2018 SUBJECTIVE: Ms. Miranda says she was feeling a little bit better this morning, though appetite really has not returned. She went down for a HIDA scan earlier today. With the CCK administration, she had instant reproduction of her characteristic pain symptoms. The HIDA scan came back with abnormally low gallbladder ejection fraction of 30%. She has no new symptoms. She has remained hemodynamically stable. OBJECTIVE: VITAL SIGNS: Temperature 98.7, pulse 79, blood pressure 111/68, 98% oxygen saturation on room air. GENERAL: No acute distress. HEART: Regular rate and rhythm. LUNGS: Clear to auscultation bilaterally. ABDOMEN: Bowel sounds are present. Soft. Tender to palpation in the epigastrium and right upper quadrant. No guarding or rebound tenderness. EXTREMITIES: No peripheral edema. LABORATORY STUDIES: WBC 6.6, hemoglobin 9.8, platelets 254. Sodium 139, potassium 3.8, BUN 5, creatinine 0.69. LFTs all remain normal with total bilirubin 0.2, alkaline phosphatase 115, AST 14, ALT 14. IMAGING STUDIES: HIDA scan performed earlier today demonstrated abnormally low gallbladder ejection fraction of 30%. The patient had reproduction of characteristic pain with the CCK administration. ASSESSMENT AND PLAN: 1. Nausea and vomiting. 2. Upper abdominal pain. 3. Abnormal HIDA scan showing low gallbladder ejection fraction, raising suspicion for chronic cholecystitis. We discussed that with her essentially otherwise negative workup including upper and lower endoscopy and abdominal ultrasound, the abnormal HIDA scan does seem to point toward possible chronic cholecystitis as the etiology for her recurrent symptoms. The patient still has really not been able to advance her diet here and is requesting surgical evaluation. We will go ahead and consult General Surgery for their opinion and possible cholecystectomy. 4. Please call anytime with questions or concerns. Job ID: [id number]
--- NOTE | 2018-07-24 15:15 | PDOC.PN ---
- Subjective Encounter Start Date: 07/24/18 Encounter Start Time: 11:30 Subjective: Reports pain is slightly better, until she went to HIDA scan -: and severe pain returned after CCK injected -: Reports intolerance to food, hasn't been able to advance diet - Objective Resuscitation Status - Order Detail: 07/22/18 23:49 Resuscitation Status Routine Resuscitation Status: FULL: Full Resuscitation Vital Signs & Weight: Vital Signs (12 hours) Temp Pulse Resp BP BP Pulse Ox 07/24/18 11:44 98.7 F 79 16 111/68 98 07/24/18 08:30 84 07/24/18 08:09 98.1 F 84 16 107/59 L 95 07/24/18 03:37 98.2 F 73 16 106/59 L 95 Weight Weight 106.957 kg I&O: 07/23/18 07/24/18 07/25/18 06:59 06:59 06:59 Intake Total 3757 Balance 3757 Result Diagrams: 07/24/18 12:56 07/24/18 12:56 Additional Labs: Accuchecks 07/24/18 07/24/18 07/23/18 10:55 06:33 20:45 POC Glucose 118 H 120 H 132 H Phys Exam - Physical Examination HEENT: PERRLA, moist MMs Neck: no nodes, no JVD Respiratory: clear to auscultation bilateral Cardiovascular: RRR Gastrointestinal: positive bowel sounds RUQ tenderness Musculoskeletal: no edema, pulses present Neurological: non-focal, normal sensation Lymphatic: no nodes Psychiatric: normal affect, A&O x 3 Dx/Plan (1) Cholecystitis without cholelithiasis Code(s): K81.9 - CHOLECYSTITIS, UNSPECIFIED Status: Chronic (2) Diabetes type 2, controlled Code(s): E11.9 - TYPE 2 DIABETES MELLITUS WITHOUT COMPLICATIONS Status: Chronic (3) Dyslipidemia Code(s): E78.5 - HYPERLIPIDEMIA, UNSPECIFIED Status: Chronic (4) GERD (gastroesophageal reflux disease) Code(s): K21.9 - GASTRO-ESOPHAGEAL REFLUX DISEASE WITHOUT ESOPHAGITIS Status: Chronic - Plan cont current plan of care, out of bed/ambulate Abdominal pain requiring narcotics, nausea treated with Zofran -: HIDA scan with EF 30%, Dr. Jones consulted general surgery -: Will continue to monitor * .
[2018-07-24] MEDS: Rosuvastatin 20 MG TAB PO SCH (20:09)
[2018-07-25] MEDS ORDERED: Fentanyl 100 MCG/2 ML VIAL ONE ×5 (03:54→14:32)
[2018-07-25] MEDS ORDERED: Metoclopramide 10 MG/10 ML UDCUP ONE (05:26)
[2018-07-25] MEDS ORDERED: Metoclopramide HCl 10 MG/2 ML VIAL ONE (05:27)
--- NOTE | 2018-07-25 08:26 | CON ---
DATE OF CONSULTATION: 07/24/2018 REASON FOR CONSULTATION: Suspected biliary dyskinesia. HISTORY OF PRESENT ILLNESS: The patient is a 47-year-old female. She gives about a 9-month history of recurrent symptoms of epigastric and right upper quadrant discomfort. She notes that over the past couple of months, this has been present as a baseline symptom that is exacerbated by eating. As an outpatient, she underwent upper and lower endoscopy per Dr. Jones without findings of any problems that would cause these symptoms. 2 days ago, her pain became dramatically worse and she presented to the emergency room complaining of nausea and vomiting. In the emergency room, she had laboratory studies that revealed an elevated white blood cell count. It is noted that this has normalized since she was hospitalized and given IV fluids. Her liver function tests and chemistries were essentially normal. She did have a CT scan of her abdomen and pelvis that revealed no significant abnormalities. Gallbladder ultrasound was obtained, was also negative. She subsequently had a HIDA scan performed, which revealed a diminished ejection fraction of 30%, but perhaps more significantly she had exact reproduction of her upper abdominal symptoms with CCK administration. I am consulted for further evaluation and treatment recommendations. PAST MEDICAL HISTORY: 1. Obesity (however, she notes that her weight has decreased from about 285 down to 235 over the past 6 months). 2. Diabetes type 2. 3. Fatty liver. 4. Hyperlipidemia. 5. Arthritis. 6. Gastroesophageal reflux disease. 7. Anemia. 8. Colon polyps. PAST SURGICAL HISTORY: 1. D and C. 2. Nasal septal surgery. 3. LASIK surgery. 4. Left ankle surgery. 5. Left shoulder surgery. 6. Right wrist surgery (carpal tunnel). 7. Right elbow surgery. 8. Left total knee replacement earlier this year. ALLERGIES: HYDROCODONE AND ERYTHROMYCIN BASE. MEDICATIONS: Victoza, iron, lisinopril, vitamin D, Januvia, metformin, Crestor, and omeprazole. PERSONAL AND SOCIAL HISTORY: She is with 1 child. Her daughter is present at bedside. She works as a dialysis nurse. She does smoke about a pack per day of cigarettes, but is in the process of trying to quit. She rarely drinks alcohol. REVIEW OF SYSTEMS: Ten system review is obtained and is otherwise negative. FAMILY HISTORY: Noncontributory. PHYSICAL EXAMINATION: VITAL SIGNS: She is afebrile. Vital signs within normal limits. GENERAL: She is a well-developed, obese, but very pleasant white female, resting in bed, in no acute distress. She is alert and oriented x3. HEAD, EYES, EARS, NOSE, AND THROAT: Unremarkable. NECK: Supple without masses or tenderness. LUNGS: Clear to auscultation. CARDIAC: Regular rate and rhythm without murmur. ABDOMEN: Obese, but soft. She has focal tenderness to palpation in the epigastrium and right upper quadrant. EXTREMITIES: Unremarkable. LABORATORY DATA: Her recent CBC and comprehensive metabolic panel, as well as lipase level are essentially normal except for mild anemia. IMAGING STUDIES: As referenced above. ASSESSMENT: The patient with symptoms and findings consistent with biliary dyskinesia. I suspect that laparoscopic cholecystectomy will lead to resolution of her symptoms. I had a lengthy discussion with the patient regarding these findings and options for treatment. She understands that biliary dyskinesia is not dangerous, but likely to continue to be symptomatic and there is no other treatment that is recognized other than a laparoscopic cholecystectomy. She also understands the possibility that surgery will not lead to resolution of her symptoms. I discussed all options with her and she prefers to proceed with surgery at this time. Laparoscopic cholecystectomy has been scheduled for tomorrow. I discussed the operation in detail with the patient as well as potential risks. She understands and agrees to proceed with surgery at this time. Job ID: [id number]
[2018-07-25] MEDS: Famotidine/PF 20 mg/2ml Vial SLOW IVP SCH (08:40)
[2018-07-25] MEDS: Sodium Chloride 0.9% 1,000 ML IV SCH (08:41)
[2018-07-25] MEDS: Heparin 5,000 UNITS/ML VIAL SC SCH ×2 (08:41→15:44)
[2018-07-25] MEDS: Lisinopril 5 MG TAB PO SCH (08:41)
[2018-07-25 08:43] VITALS: BP 101/69
[2018-07-25 08:55] VITALS: TEMP 98.3
[2018-07-25] MEDS: Metoclopramide HCl 10 MG/2 ML VIAL IVP SCH ×2 (09:50→15:44)
[2018-07-25] MEDS ORDERED: Bupivacaine/Epinephrine 0.25% 30 ML VIAL ONE (12:06)
[2018-07-25 15:58] LABS: #Eosinphils 0.2 thou/uL (0.0-0.7); #Lymphocytes 1.3 thou/uL (1.20-3.40); #Monocytes 0.2 thou/uL (0.11-0.59); #Neutrophils 9.4 thou/uL (1.40-6.50); %Basophils 0.1 % (0.0-1.0); %Eosinophils 1.9 % (0.0-10.0); %Lymphocytes 12.1 % (21.0-51.0); %Monocytes 1.3 % (0.0-10.0); %Neutrophils 84.6 % (42.0-75.0); Hemoglobin 10.9 g/dL (12.0-16.0); Mean Corpuscular HGB CONC 31.1 g/dL (32.0-36.0); Mean Corpuscular Hemoglobin 22.2 pg (27.0-31.0); Mean Corpuscular Volume 71.2 fL (78.0-98.0); Mean Platelet Volume 10.7 fL (7.4-10.4); Platelet Count 323 thou/uL (130-400); RBC Distribution Width 18.7 % (11.5-14.5); Red Blood Cell (RBC) Count 4.93 mill/uL (4.20-5.40); White Blood Cell (WBC) Count 11.1 thou/uL (4.8-10.8)
--- NOTE | 2018-07-25 16:22 | PDOC.PN ---
- Subjective Encounter Start Date: 07/25/18 Encounter Start Time: 16:20 Ms. Miranda was seen today in follow-up of biliary colic. She does not have any complaints. She says she has been up waling since her surgery and has tolerated a clear liquid diet. - Objective Resuscitation Status - Order Detail: 07/22/18 23:49 Resuscitation Status Routine Resuscitation Status: FULL: Full Resuscitation MAR Reviewed: Yes Vital Signs & Weight: Vital Signs (12 hours) Temp Pulse Resp BP BP Pulse Ox 07/25/18 08:41 75 101/69 07/25/18 08:00 98.3 F 66 16 101/69 94 L Weight Weight 235 lb 12.8 oz I&O: 07/24/18 07/25/18 07/26/18 06:59 06:59 06:59 Intake Total 3757 Balance 3757 Result Diagrams: 07/25/18 15:45 07/24/18 12:56 Additional Labs: Accuchecks 07/25/18 07/24/18 07/24/18 04:42 23:40 16:45 POC Glucose 124 H 229 H 99 Phys Exam - Physical Examination Respiratory: no wheezing, no rales, no rhonchi Cardiovascular: RRR, no significant murmur, no rub Dx/Plan (1) Cholecystitis without cholelithiasis Code(s): K81.9 - CHOLECYSTITIS, UNSPECIFIED Status: Chronic (2) Diabetes type 2, controlled Code(s): E11.9 - TYPE 2 DIABETES MELLITUS WITHOUT COMPLICATIONS Status: Chronic (3) Dyslipidemia Code(s): E78.5 - HYPERLIPIDEMIA, UNSPECIFIED Status: Chronic (4) Hypertension Code(s): I10 - ESSENTIAL (PRIMARY) HYPERTENSION Status: Chronic - Plan * Acalculous cholecystitis- improved after lap luda * She is stable for discharge home.
[2018-07-25 16:26] LABS: ALT (SGPT) 23 U/L (8-55); AST (SGOT) 29 U/L (5-34); Albumin 4.1 g/dL (3.5-5.0); Alkaline Phosphatase 145 U/L (40-150); Anion Gap 13 mmol/L (10-20); BUN (Urea Nitrogen) 7 mg/dL (7.0-18.7); Bilirubin, Total 0.3 mg/dL (0.2-1.2); Calc. Creatinine Clearance 157 mL/min (70-130); Calcium 9.9 mg/dL (7.8-10.44); Carbon Dioxide 26 mmol/L (22-29); Chloride 104 mmol/L (98-107); Estimated GFR-MDRD 85; Globulin 3.4 g/dL (2.4-3.5); Glucose 182 mg/dL (70-105); Potassium 3.9 mmol/L (3.5-5.1); Protein, Total 7.5 g/dL (6.0-8.3); Sodium 139 mmol/L (136-145)
--- NOTE | 2018-07-26 02:03 | OP ---
DATE OF PROCEDURE: 07/25/2018 PREOPERATIVE DIAGNOSES: Biliary dyskinesia, ventral abdominal hernia. POSTOPERATIVE DIAGNOSES: Biliary dyskinesia, ventral abdominal hernia. OPERATION PERFORMED: Laparoscopic cholecystectomy with repair of ventral abdominal hernia without mesh. ANESTHESIA: General endotracheal. INDICATIONS: The patient is a 47-year-old obese white female. She has symptoms referable to her gallbladder. She has findings consistent with biliary dyskinesia and laparoscopic cholecystectomy was recommended. Additionally, she is recognized to have a visible and palpable supraumbilical hernia. This was imaged on the preop CT scan. Plan is to consider repair of this during the course of her operation depending upon its location relative to port sites. DESCRIPTION OF OPERATION: Informed consent was obtained. The patient was taken to the operating room where general endotracheal anesthesia was obtained with the patient in supine position. Abdomen was prepped with ChloraPrep and draped in sterile fashion. Local anesthetic was infiltrated using 0.25% Marcaine with epinephrine. A 5-mm right upper quadrant incision was created through which a Veress needle was passed into the peritoneal cavity and pneumoperitoneum was established using carbon dioxide up to a pressure of 15 mmHg. A 5-mm trocar port was passed through the same incision. Laparoscopic camera was passed through this port. Under direct vision, two additional 5 mm right upper quadrant ports were placed in the usual location. Attention was then turned to the midline. The area of the supraumbilical hernia was palpated. This proved to be at the site of the entry of the falciform ligament into the abdominal wall. The inferior aspect of the falciform ligament was mobilized using electrocautery, exposing the hernia defect. An 11-mm supraumbilical incision was created through which a Veress was through an 11-mm port was passed through the hernia defect into the abdominal cavity. Camera was placed to the 11 mm port and attention was turned to the liver and the gallbladder. The patient had a markedly enlarged and fatty appearing liver. The gallbladder was grasped and retracted in a cephalad direction. It was difficult to mobilize this because of the size of the liver. The gallbladder had an entirely unremarkable and uninflamed appearance. The apex was identified, retracted laterally and inferiorly. Careful dissection was carried out at the apex of the gallbladder to identify the cystic duct and cystic artery. All structures were carefully dissected, identified, and divided between clips leaving 2 on the side to remain within the abdomen. The gallbladder was then carefully dissected out of the gallbladder fossa using electrocautery. The gallbladder was removed uneventfully through the 11 mm port site. The fascia at the hernia was repaired with 2 interrupted sutures of 0 Vicryl placed with a GraNee needle under direct vision. The right upper quadrant was irrigated. All irrigant was aspirated. The dissection site was inspected and found to be entirely hemostatic and there was never any evidence of bile leak. All ports and instruments were removed under direct vision. Pneumoperitoneum was carefully evacuated. A 0.25% Marcaine with epinephrine was infiltrated into each port site. Skin edges were approximated with 4-0 Monocryl subcuticular suture. Dermabond was placed externally. There were no complications. The patient tolerated the procedure well and was taken to recovery room in stable condition. Job ID: [id number]
--- NOTE | 2018-07-26 03:00 | DIS ---
DATE OF ADMISSION: 07/23/2018 DATE OF DISCHARGE: 07/25/2018 PRIMARY CARE PHYSICIAN: Puja Jacob MD. DISCHARGE DISPOSITION: Home. PRIMARY DISCHARGE DIAGNOSES: 1. Acalculous cholecystitis. 2. Hypertension. 3. Hyperlipidemia. 4. Diabetes mellitus. 5. History of factor VIII deficiency. DISCHARGE MEDICATIONS: Include, 1. Januvia 100 mg daily. 2. Crestor 20 mg at bedtime. 3. Omeprazole 20 mg daily. 4. Metformin extended release 500 mg 2 tablets twice a day. 5. Lisinopril 5 mg daily. 6. Victoza 1.2 mg daily. 7. Fish oil 2000 mg daily. 8. Iron sulfate 325 mg twice daily. 9. Cinnamon bark 1000 mg p.o. daily. 10. Vitamin D3, 4000 units daily. PROCEDURES DONE DURING THE ADMISSION: The patient had an abdominal ultrasound, this was unremarkable, right upper quadrant ultrasound. The patient also had a CT scan of the abdomen and pelvis, in which there was some mild fluid-filled small bowel loops, raising the concern for possible enteritis. There were some fatty changes of the liver without evidence of hepatic splenomegaly or fat-containing umbilical hernia. The patient also had a hepatobiliary scan. This showed visualization of the gallbladder. However, the patient had a low ejection fraction of 30% and bowel activity was visualized after CCK in [place]. The patient also had a laparoscopic cholecystectomy. CODE STATUS: Full code. ALLERGIES: ERYTHROMYCIN BASE, HYDROCODONE, AND PECAN NUT. HOSPITAL COURSE: Ms. Miranda is a pleasant 47-year-old female who has a history of hypertension as well as diabetes mellitus. She had been having abdominal pain as well as nausea and vomiting particularly after eating. The pain seemed to be localized to the right upper quadrant. She had been having these problems on and off over the past few weeks. She was initially placed in observation and a CT scan of the abdomen as well as an abdominal ultrasound were obtained, both were essentially negative. However, she continued to have symptoms of these right upper quadrant pain. Therefore, a GI was consulted and the patient underwent a HIDA scan. The HIDA scan demonstrated a low ejection fraction. General Surgery was consulted, and the patient underwent a laparoscopic cholecystectomy. Following surgery the same day, the patient said she was feeling much improved. She says that she was not having pain anywhere near which she was having prior to the surgery. She was ambulatory and tolerating a clear liquid diet, and as such, was discharged home. She will be following up with Dr. Tan in 1 week and then also with Dr. Jacob in 1 to 2 weeks. Job ID: [id number]
== END 2018-07-25 16:47 | disposition home or self-care (01) | DRG 419 ==
LOC: ERS 18:23 → 2SW 07-23 00:09 → OBSVTOIN 07-23 00:09 → T4-A 07-24 16:47
PROVIDERS: ADMIT Internal Medicine; ATTEND Internal Medicine
PROC: 0FT44ZZ Resection of Gallbladder, Percutaneous Endoscopic Approach (ICD-10-PCS; principal; 2018-07-25)
PROC: 0WQF4ZZ Repair Abdominal Wall, Percutaneous Endoscopic Approach (ICD-10-PCS; 2018-07-25)
DX: K81.1 Chronic cholecystitis (principal); E11.9 Type 2 diabetes mellitus without complications; E78.5 Hyperlipidemia, unspecified; K21.9 Gastro-esophageal reflux disease without esophagitis; F17.210 Nicotine dependence, cigarettes, uncomplicated; E66.9 Obesity, unspecified; M19.90 Unspecified osteoarthritis, unspecified site; Z96.652 Presence of left artificial knee joint; Z79.84 Long term (current) use of oral hypoglycemic drugs; Z88.1 Allergy status to other antibiotic agents; Z68.39 Body mass index [BMI] 39.0-39.9, adult
CPT/HCPCS: 36415; 36416; 74177; 76705; 78227; 80048; 80053; 83605; 83690; 84703; 85025; 85610; 85730; 86850; 86900; 86901; 88304; A9537; J0690; J1644; J2270; J2405; J2550; J2765; J3010; J7050; J8597; S0028

== ENCOUNTER 2018-08-06 07:34 | Outpatient (CLI) | payer OTHER ==
--- NOTE | 2018-08-06 13:47 | NM ---
NUCLEAR MEDICINE GASTRIC EMPTY STUDY: 08/06/18 HISTORY: Nausea. COMPARISON: None. TECHNIQUE: Patient administered 2.1 millicuries of technetium 99m sulfur colloid in an egg mixture. FINDINGS: 0% emptying at 30 minutes. 0% emptying in one hour. 8% emptying in two hours. 64% emptying in 64 minutes. 100% emptying in four hours. T1/2 time is 164 minutes. IMPRESSION: Delayed gastric emptying. POS: OFF
== END 2018-08-06 07:35 | disposition home or self-care (01) ==
LOC: NM 07:34
PROVIDERS: ATTEND Internal Medicine
DX: R11.0 Nausea (principal); R10.13 Epigastric pain; K30 Functional dyspepsia
CPT/HCPCS: 78264; A9541

== ENCOUNTER 2018-10-09 19:19 | Emergency (ER) | payer OTHER ==
[2018-10-09 19:55] LABS: Hemoglobin 12.4 g/dL (12.0-16.0); Mean Corpuscular HGB CONC 31.7 g/dL (32.0-36.0); Mean Corpuscular Hemoglobin 22.9 pg (27.0-31.0); Mean Corpuscular Volume 72.3 fL (78.0-98.0); Mean Platelet Volume 8.3 fL (7.4-10.4); Platelet Count 340 thou/uL (130-400); RBC Distribution Width 16.1 % (11.5-14.5); Red Blood Cell (RBC) Count 5.43 mill/uL (4.20-5.40); White Blood Cell (WBC) Count 10.9 thou/uL (4.8-10.8)
[2018-10-09 19:56] LABS: Bilirubin Negative (Negative); Blood, Urine Negative (Negative); Clarity Clear (Clear); Glucose, Urine (Dipstick) Negative (Negative); Leukocyte Negative (Negative); Nitrite Negative (Negative); Pregnancy Test - Urine (BHCG) Negative (Negative); Pregu Control Background? CLEAR/WHITE (CLR/WHITE); Pregu Control Bar Appear? YES (CONTROL BAR); Protein, Urine (Dipstick) Negative (Neg-Trace); Urobilinogen 0.2 mg/dL (Less than 2)
[2018-10-09] MEDS ORDERED: Ketorolac Tromethamine 30 MG/ML VIAL ONE (20:01)
[2018-10-09 20:06] LABS: #Basophils 0.1 thou/uL (0.0-0.2); #Eosinphils 0.4 thou/uL (0.0-0.7); #Lymphocytes 3.9 thou/uL (1.20-3.40); #Monocytes 0.6 thou/uL (0.11-0.59); %Basophils 1.2 % (0.0-1.0); %Eosinophils 3.7 % (0.0-10.0); %Lymphocytes 35.4 % (21.0-51.0); %Monocytes 5.3 % (0.0-10.0); %Neutrophils 54.4 % (42.0-75.0); ALT (SGPT) 14 U/L (8-55); AST (SGOT) 16 U/L (5-34); Albumin 4.2 g/dL (3.5-5.0); Alkaline Phosphatase 158 U/L (40-150); Anion Gap 13 mmol/L (10-20); Anisocytosis SLIGHT = 6-15 cells (100X) (0-5/hpf); BUN (Urea Nitrogen) 9 mg/dL (7.0-18.7); Bilirubin, Total 0.3 mg/dL (0.2-1.2); Calc. Creatinine Clearance 0 mL/min (70-130); Calcium 9.9 mg/dL (7.8-10.44); Carbon Dioxide 27 mmol/L (22-29); Chloride 102 mmol/L (98-107); Estimated GFR-MDRD Greater than 90; Globulin 3.7 g/dL (2.4-3.5); Glucose 91 mg/dL (70-105); Hypochromia SLIGHT = 6-15 cells (100X) (0-5/hpf); Lipase 53 U/L (8-78); MDiff Complete? YES; Microcytosis SLIGHT = 6-15 cells (100X) (0-5/hpf); Platelet Morphology Comment Appears Adequate; Potassium 4.3 mmol/L (3.5-5.1); Protein, Total 7.9 g/dL (6.0-8.3); Sodium 138 mmol/L (136-145)
--- NOTE | 2018-10-09 20:24 | CT ---
CT abdomen and pelvis noncontrast HISTORY: Flank pain. COMPARISON: 07/22/2018. FINDINGS: Each renal collecting system, ureter, and urinary bladder are decompressed without stone ap parent. Lack of contrast limits evaluation for other abnormalities. Gallbladder surgically absent. Mild linea r scarring at the left lung base. Small amount of fat protrudes into an umbilical hernia is similar in appearance to the prior exam. Urinary bladder is decompressed. Subtle circumferential wall thicken ing involving the distal portion of the transverse colon and the left colon. No inflammation in the adjacent fat. No free air or free fluid. IMPRESSION: No CT evidence of urinary tract obstruction or calcification. Mild nonspecific long segment transverse and left colitis. Cause is not evident. Consider infectious colitis?
== END 2018-10-09 22:38 | disposition home or self-care (01) ==
LOC: SCSER 19:19
DX: K52.9 Noninfective gastroenteritis and colitis, unspecified (principal); E11.9 Type 2 diabetes mellitus without complications; E78.5 Hyperlipidemia, unspecified; F17.210 Nicotine dependence, cigarettes, uncomplicated; Z79.899 Other long term (current) drug therapy; Z79.84 Long term (current) use of oral hypoglycemic drugs
CPT/HCPCS: 74176; 80053; 81003; 81025; 83690; 85025; 96361; 96374; J1885

== ENCOUNTER 2019-04-24 18:48 | Emergency (ER) | payer SELFPAY ==
--- NOTE | 2019-04-24 19:29 | RAD ---
AP VIEW OF THE PELVIS: 04/24/19 INDICATION: Mechanical fall with right hip pain. COMPARISON: None. FINDINGS: There is mild enthesopathic change off the right greater trochanter. No acute fracture or subluxation is grossly evident. Mild degenerative changes are seen involving both hips. IMPRESSION: No acute osseous abnormality. POS: BH
--- NOTE | 2019-04-24 19:36 | RAD ---
RIGHT HIP TWO VIEWS: 04/24/19 INDICATION: Mechanical fall with right hip pain. COMPARISON: None. FINDINGS: No acute fracture or subluxation is evident. There is mild degenerative arthrosis of the right hip. V isualized intrapelvic contents appear within normal limits. IMPRESSION: No acute osseous abnormality. POS: BH
== END 2019-04-24 20:44 | disposition home or self-care (01) ==
LOC: MERGE 18:48 → ERS 18:48
DX: S70.01XA Contusion of right hip, initial encounter (principal); E11.9 Type 2 diabetes mellitus without complications; K21.9 Gastro-esophageal reflux disease without esophagitis; E78.5 Hyperlipidemia, unspecified; F17.210 Nicotine dependence, cigarettes, uncomplicated; Z79.84 Long term (current) use of oral hypoglycemic drugs; Z79.899 Other long term (current) drug therapy; W01.0XXA Fall on same level from slipping, tripping and stumbling without subsequent striking against object, initial encounter; Y93.01 Activity, walking, marching and hiking; Y99.0 Civilian activity done for income or pay
CPT/HCPCS: 72170

== ENCOUNTER 2019-07-30 16:13 | Outpatient (CLI) | payer OTHER ==
--- NOTE | 2019-07-30 16:35 | MMO ---
Bilateral MAMMO Bilat Screen [facility]DI[facility]MIS. CLINICAL HISTORY: Patient is 48 years old and is seen for screening. The patient has the following family history of breast cancer: maternal grandmother. The patient has no personal history of cancer. VIEWS: The views performed were: bilateral craniocaudal with tomosynthesis and bilateral mediolateral oblique with tomosynthesis. FILMS COMPARED: The present examination has been compared to prior imaging studies performed at [facility] on 06/29/2017 and 07/02/2018. This study has been interpreted with the assistance of computer-aided detection. MAMMOGRAM FINDINGS: There are scattered fibroglandular densities. There are stable benign appearing calcifications seen in both breasts. Nodularity is stable. There are no suspicious masses, suspicious calcifications, or new areas of architectural distortion. IMPRESSION: THERE IS NO MAMMOGRAPHIC EVIDENCE OF MALIGNANCY. A ROUTINE FOLLOW-UP MAMMOGRAM IN 1 YEAR IS RECOMMENDED. THE RESULTS OF THIS EXAM WERE SENT TO THE PATIENT. ACR BI-RADS Category 2 - Benign finding MAMMOGRAPHY NOTE: 1. A negative mammogram report should not delay a biopsy if a dominant of clinically suspicious mass is present. 2. Approximately 10% to 15% of breast cancers are not detected by mammography. 3. Adenosis and dense breasts may obscure an underlying neoplasm. Reported by: PAOLA BOBO MD Electonically Signed: [id number]
== END 2019-07-30 16:14 | disposition home or self-care (01) ==
LOC: BICMAMMO 16:13
PROVIDERS: ATTEND Internal Medicine
DX: Z12.31 Encounter for screening mammogram for malignant neoplasm of breast (principal); Z80.3 Family history of malignant neoplasm of breast
CPT/HCPCS: 77063; 77067

== ENCOUNTER 2019-10-20 08:48 | Emergency (ER) | payer OTHER ==
--- NOTE | 2019-10-20 09:36 | RAD ---
XR Chest 1 View Portable HISTORY: Chest pain COMPARISON: 06/27/2017 FINDINGS: The heart size is normal. The lungs are well expanded without pneumothorax or large pleura l effusions. There is obscuration of the left hemidiaphragm with increased density at the left lung base which may be due to atelectatic change, consolidation, small pleural effusion or combination thereof.
[2019-10-20 09:41] LABS: #Basophils 0.1 thou/uL (0.0-0.2); #Eosinphils 0.2 thou/uL (0.0-0.7); #Lymphocytes 2.9 thou/uL (1.20-3.40); #Monocytes 0.5 thou/uL (0.11-0.59); #Neutrophils 7.5 thou/uL (1.40-6.50); %Basophils 0.6 % (0.0-1.0); %Eosinophils 1.6 % (0.0-10.0); %Lymphocytes 25.7 % (21.0-51.0); %Monocytes 4.7 % (0.0-10.0); %Neutrophils 67.4 % (42.0-75.0); Hemoglobin 12.3 g/dL (12.0-16.0); Mean Corpuscular HGB CONC 31.1 g/dL (32.0-36.0); Mean Corpuscular Hemoglobin 23.1 pg (27.0-31.0); Mean Corpuscular Volume 74.2 fL (78.0-98.0); Mean Platelet Volume 9.6 fL (7.4-10.4); Platelet Count 377 thou/uL (130-400); RBC Distribution Width 16.7 % (11.5-14.5); Red Blood Cell (RBC) Count 5.33 mill/uL (4.20-5.40); White Blood Cell (WBC) Count 11.1 thou/uL (4.8-10.8)
[2019-10-20 09:57] LABS: Hypochromia SLIGHT = 6-15 cells (100X) (0-5/hpf); MDiff Complete? YES; Microcytosis SLIGHT = 6-15 cells (100X) (0-5/hpf); Platelet Morphology Comment Appears Adequate; Polychromasia SLIGHT = 2-3 cells (100X) (0-2/hpf)
[2019-10-20 10:04] LABS: ALT (SGPT) 16 U/L (8-55); AST (SGOT) 18 U/L (5-34); Alkaline Phosphatase 127 U/L (40-110); Anion Gap 17 mmol/L (10-20); BUN (Urea Nitrogen) 13 mg/dL (9.8-20.1); Bilirubin, Total 0.3 mg/dL (0.2-1.2); Calc. Creatinine Clearance 0 mL/min (70-130); Calcium 9.3 mg/dL (7.8-10.44); Carbon Dioxide 20 mmol/L (22-29); Chloride 106 mmol/L (98-107); Estimated GFR-MDRD Greater than 90; Globulin 2.8 g/dL (2.4-3.5); Glucose 123 mg/dL (70-105); Potassium 4.2 mmol/L (3.5-5.1); Protein, Total 6.8 g/dL (6.0-8.3); Sodium 139 mmol/L (136-145)
[2019-10-20] MEDS ORDERED: Ondansetron PF 4 MG/2 ML Vial ONE (10:23)
[2019-10-20] MEDS ORDERED: Morphine 4 MG/ML VIAL ONE (10:23)
[2019-10-20 12:42] LABS: Troponin I Less than 0.010 ng/mL (< 0.028)
== END 2019-10-20 13:22 | disposition home or self-care (01) ==
LOC: ERS 08:48
DX: R07.9 Chest pain, unspecified (principal); E11.9 Type 2 diabetes mellitus without complications; E78.5 Hyperlipidemia, unspecified; F17.210 Nicotine dependence, cigarettes, uncomplicated; Z79.82 Long term (current) use of aspirin; Z79.84 Long term (current) use of oral hypoglycemic drugs; Z79.899 Other long term (current) drug therapy
CPT/HCPCS: 36415; 71045; 80053; 84484; 85025; 93005; 96374; J2270; J2405

== ENCOUNTER 2020-05-06 09:45 | Emergency (ER) | payer OTHER ==
[2020-05-06 10:16] LABS: #Basophils 0.1 thou/uL (0.0-0.2); #Eosinphils 0.3 thou/uL (0.0-0.7); #Lymphocytes 3.7 thou/uL (1.20-3.40); #Monocytes 0.6 thou/uL (0.11-0.59); #Neutrophils 10.3 thou/uL (1.40-6.50); %Basophils 0.6 % (0.0-1.0); %Eosinophils 1.8 % (0.0-10.0); %Lymphocytes 24.9 % (21.0-51.0); %Neutrophils 68.7 % (42.0-75.0); Mean Corpuscular HGB CONC 32.5 g/dL (32.0-36.0); Mean Corpuscular Hemoglobin 25.5 pg (27.0-31.0); Mean Corpuscular Volume 78.4 fL (78.0-98.0); Mean Platelet Volume 8.7 fL (7.4-10.4); Platelet Count 390 thou/uL (130-400); RBC Distribution Width 15.9 % (11.5-14.5); Red Blood Cell (RBC) Count 5.51 mill/uL (4.20-5.40)
[2020-05-06 10:33] LABS: BHCG - Serum Negative (NEGATIVE); Pregs Control Background? CLEAR/WHITE (CLR/WHITE); Pregs Control Bar Appear? YES (CONTROL BAR)
[2020-05-06] MEDS ORDERED: Ondansetron PF 4 MG/2 ML Vial ONE (10:38)
[2020-05-06] MEDS ORDERED: Ketorolac Tromethamine 30 MG/ML VIAL ONE (10:38)
[2020-05-06 10:44] LABS: Bilirubin Negative (Negative); Blood, Urine Negative (Negative); Clarity Clear (Clear); Glucose, Urine (Dipstick) Normal (Negative); Ketone, Urine Negative (Negative); Leukocyte 25 Leu/uL (Negative); Nitrite Negative (Negative); Protein, Urine (Dipstick) Negative (Neg-Trace); RBC/HPF 0-3 HPF (0-3); Specific Gravity, Urine 1.013 (1.002-1.036); Urobilinogen Normal mg/dL (Less than 2)
[2020-05-06 10:44] LABS: ALT (SGPT) 17 U/L (8-55); AST (SGOT) 19 U/L (5-34); Albumin 4.1 g/dL (3.5-5.0); Alkaline Phosphatase 149 U/L (40-110); Anion Gap 15 mmol/L (10-20); BUN (Urea Nitrogen) 15 mg/dL (9.8-20.1); Bilirubin, Total 0.2 mg/dL (0.2-1.2); Calc. Creatinine Clearance 0 mL/min (70-130); Calcium 9.6 mg/dL (7.8-10.44); Carbon Dioxide 23 mmol/L (22-29); Chloride 101 mmol/L (98-107); Globulin 3.6 g/dL (2.4-3.5); Glucose 186 mg/dL (70-105); Potassium 4.7 mmol/L (3.5-5.1); Protein, Total 7.7 g/dL (6.0-8.3); Sodium 134 mmol/L (136-145)
[2020-05-06 10:45] LABS: Bacteria/HPF Rare-Few HPF (None Seen)
[2020-05-06] MEDS ORDERED: Fentanyl 100 MCG/2 ML VIAL ONE (11:52)
[2020-05-06] MEDS ORDERED: Iopamidol 370 76% 100 ML VIAL ONE (13:54)
== END 2020-05-06 13:25 | disposition home or self-care (01) ==
LOC: ERS 09:45
DX: R10.9 Unspecified abdominal pain (principal); N39.0 Urinary tract infection, site not specified; E11.9 Type 2 diabetes mellitus without complications; E78.5 Hyperlipidemia, unspecified; M19.90 Unspecified osteoarthritis, unspecified site; F17.210 Nicotine dependence, cigarettes, uncomplicated; K21.9 Gastro-esophageal reflux disease without esophagitis; Z79.82 Long term (current) use of aspirin; Z79.84 Long term (current) use of oral hypoglycemic drugs; Z79.899 Other long term (current) drug therapy
CPT/HCPCS: 36415; 74177; 80053; 81003; 81015; 84703; 85025; 87077; 87086; 87186; 96374; 96375; J1885; J2405; J3010; Q9967

== ENCOUNTER 2020-07-26 18:30 | Outpatient (CLI) | payer OTHER | END 2020-07-26 18:31 | disposition home or self-care (01) | LOC: SLEEPLAB 18:30 | PROVIDERS: ATTEND Internal Medicine | DX: G47.33 Obstructive sleep apnea (adult) (pediatric) (principal); R53.83 Other fatigue; R06.83 Snoring; E11.9 Type 2 diabetes mellitus without complications; K21.9 Gastro-esophageal reflux disease without esophagitis; G47.00 Insomnia, unspecified; E66.9 Obesity, unspecified; Z68.41 Body mass index [BMI] 40.0-44.9, adult | CPT/HCPCS: 95806 ==

== ENCOUNTER 2020-09-11 19:30 | Outpatient (CLI) | payer OTHER | END 2020-09-11 19:31 | disposition home or self-care (01) | LOC: SLEEPLAB 19:30 | PROVIDERS: ATTEND Internal Medicine | DX: G47.33 Obstructive sleep apnea (adult) (pediatric) (principal); R53.83 Other fatigue; R06.83 Snoring; E11.9 Type 2 diabetes mellitus without complications; G47.10 Hypersomnia, unspecified; E66.9 Obesity, unspecified; Z68.41 Body mass index [BMI] 40.0-44.9, adult | CPT/HCPCS: 95811 ==

== ENCOUNTER 2021-03-28 14:47 | Emergency (ER) | payer BC ==
[~2021-03-28 14:47] MED LIST changes: -Iopamidol 370 76% 100 ML VIAL ONE; +Iopamidol 370 76% 50 ML VIAL FS ONE; +Iopamidol-370 76% 500 ML 1 ML ONE
[2021-03-28 15:17] LABS: #Basophils 0.1 thou/uL (0.0-0.2); #Eosinphils 0.2 thou/uL (0.0-0.7); #Lymphocytes 2.4 thou/uL (1.20-3.40); #Monocytes 0.4 thou/uL (0.11-0.59); #Neutrophils 6.1 thou/uL (1.40-6.50); %Eosinophils 2.4 % (0.0-10.0); %Lymphocytes 26.4 % (21.0-51.0); %Monocytes 4.2 % (0.0-10.0); Hemoglobin 13.7 g/dL (12.0-16.0); Mean Corpuscular HGB CONC 32.2 g/dL (32.0-36.0); Mean Corpuscular Volume 80.7 fL (78.0-98.0); Mean Platelet Volume 8.7 fL (7.4-10.4); Platelet Count 287 thou/uL (130-400); RBC Distribution Width 15.4 % (11.5-14.5); Red Blood Cell (RBC) Count 5.29 mill/uL (4.20-5.40); White Blood Cell (WBC) Count 9.2 thou/uL (4.8-10.8)
[2021-03-28 15:26] LABS: BHCG - Serum Negative (NEGATIVE); Pregs Control Background? CLEAR/WHITE (CLR/WHITE); Pregs Control Bar Appear? YES (CONTROL BAR)
[2021-03-28 15:35] LABS: Bilirubin Negative (Negative); Blood, Urine Negative (Negative); Clarity Clear (Clear); Glucose, Urine (Dipstick) Normal (Negative); Ketone, Urine Negative (Negative); Leukocyte Negative Leu/uL (Negative); Nitrite Negative (Negative); Protein, Urine (Dipstick) Negative (Neg-Trace); Urobilinogen Normal mg/dL (Less than 2)
[2021-03-28 15:37] LABS: ALT (SGPT) 37 U/L (8-55); AST (SGOT) 51 U/L (5-34); Albumin 4.2 g/dL (3.5-5.0); Alkaline Phosphatase 145 U/L (40-110); Anion Gap 18 mmol/L (10-20); BUN (Urea Nitrogen) 11 mg/dL (9.8-20.1); Bilirubin, Total 0.2 mg/dL (0.2-1.2); Calc. Creatinine Clearance 0 mL/min (70-130); Calcium 9.7 mg/dL (7.8-10.44); Carbon Dioxide 20 mmol/L (22-29); Chloride 101 mmol/L (98-107); Globulin 3.9 g/dL (2.4-3.5); Glucose 254 mg/dL (70-105); Lipase 82 U/L (8-78); Potassium 4.2 mmol/L (3.5-5.1); Protein, Total 8.1 g/dL (6.0-8.3); Sodium 135 mmol/L (136-145)
== END 2021-03-28 16:10 | disposition home or self-care (01) ==
LOC: ERS 14:47
DX: K58.9 Irritable bowel syndrome, unspecified (principal); E11.9 Type 2 diabetes mellitus without complications; E78.5 Hyperlipidemia, unspecified; K21.9 Gastro-esophageal reflux disease without esophagitis; F17.210 Nicotine dependence, cigarettes, uncomplicated; Z79.84 Long term (current) use of oral hypoglycemic drugs; Z79.899 Other long term (current) drug therapy; Z79.82 Long term (current) use of aspirin
CPT/HCPCS: 74177; 80053; 81003; 83690; 84703; 85025; Q9967

== ENCOUNTER 2021-09-20 07:52 | Outpatient (CLI) | payer BC | END 2021-09-20 07:53 | disposition home or self-care (01) | LOC: BICMAMMO 07:52 | PROVIDERS: ATTEND Internal Medicine | DX: Z12.31 Encounter for screening mammogram for malignant neoplasm of breast (principal); Z80.3 Family history of malignant neoplasm of breast | CPT/HCPCS: 77063; 77067 ==

== ENCOUNTER 2021-10-02 15:43 | Observation (INO) | payer BC ==
[2021-10-02] MEDS ORDERED: Iopamidol-370 76% 500 ML 1 ML ONE (15:46)
[2021-10-02] MEDS ORDERED: Metoclopramide HCl 10 MG/2 ML VIAL ONE (16:29)
[2021-10-02] MEDS ORDERED: Ketorolac Tromethamine 30 MG/ML VIAL ONE (16:30)
[2021-10-02] MEDS ORDERED: diphenhydrAMINE 50 MG/ML VIAL ONE (16:30)
[2021-10-02] MEDS ORDERED: Magnesium 2 GM/50 ML BAG (IN WATER) ONE (16:31)
[2021-10-02 16:40] LABS: #Basophils 0.1 thou/uL (0.0-0.2); #Eosinphils 0.2 thou/uL (0.0-0.7); #Lymphocytes 2.2 thou/uL (1.20-3.40); #Monocytes 0.4 thou/uL (0.11-0.59); #Neutrophils 5.5 thou/uL (1.40-6.50); %Basophils 0.7 % (0.0-1.0); %Eosinophils 2.7 % (0.0-10.0); %Lymphocytes 26.2 % (21.0-51.0); %Monocytes 4.2 % (0.0-10.0); %Neutrophils 66.2 % (42.0-75.0); Mean Corpuscular HGB CONC 33.6 g/dL (32.0-36.0); Mean Corpuscular Hemoglobin 27.4 pg (27.0-31.0); Mean Corpuscular Volume 81.6 fL (78.0-98.0); Mean Platelet Volume 9.2 fL (7.4-10.4); Platelet Count 226 thou/uL (130-400); RBC Distribution Width 14.4 % (11.5-14.5); Red Blood Cell (RBC) Count 5.09 mill/uL (4.20-5.40); White Blood Cell (WBC) Count 8.3 thou/uL (4.8-10.8)
[2021-10-02 16:47] LABS: INR-International Normal Ratio 0.9; PTT 27.4 sec (22.9-36.1); Prothrombin Time 12.6 sec (12.0-14.7)
[2021-10-02 16:56] LABS: ALT (SGPT) 32 U/L (8-55); AST (SGOT) 58 U/L (5-34); Albumin 4.2 g/dL (3.5-5.0); Alkaline Phosphatase 166 U/L (40-110); Anion Gap 16 mmol/L (10-20); BUN (Urea Nitrogen) 6 mg/dL (9.8-20.1); Bilirubin, Total 0.3 mg/dL (0.2-1.2); Calc. Creatinine Clearance 0 mL/min (70-130); Calcium 9.6 mg/dL (7.8-10.44); Carbon Dioxide 25 mmol/L (22-29); Chloride 98 mmol/L (98-107); Estimated GFR 104; Glucose 210 mg/dL (70-105); Lipase 61 U/L (8-78); Magnesium 1.7 mg/dL (1.6-2.6); Potassium 4.2 mmol/L (3.5-5.1); Protein, Total 8.2 g/dL (6.0-8.3); Sodium 135 mmol/L (136-145)
[2021-10-02] MEDS ORDERED: Ondansetron PF 4 MG/2 ML Vial IVP PRN (20:45)
[2021-10-02] MEDS ORDERED: Acetaminophen 650 MG Suppository PR PRN (20:45)
[2021-10-02] MEDS ORDERED: Ondansetron ODT 4 MG TAB PO PRN (20:45)
[2021-10-02 21:10] LABS: Bacteria/HPF None Seen HPF (None Seen); Bilirubin Negative (Negative); Blood, Urine Negative (Negative); Clarity Clear (Clear); Glucose, Urine (Dipstick) Normal (Negative); Ketone, Urine Negative (Negative); Leukocyte 75 Leu/uL (Negative); Nitrite Negative (Negative); Protein, Urine (Dipstick) 30 mg/dL (Neg-Trace); RBC/HPF 0-3 HPF (0-3); Squamous Epithelial 21-50 HPF (0-3); WBC/HPF 0-3 HPF (0-3); pH, Urine 5.5 (5.0-9.0)
[2021-10-02 21:12] LABS: Specific Gravity, Urine Greater than 1.065 (1.002-1.036)
[2021-10-02] MEDS: Sodium Chloride 0.9% 1,000 ML IV SCH (22:59)
[2021-10-02] MEDS: Acetaminophen 325 MG TAB PO PRN (23:00)
[2021-10-03 03:13] VITALS: BMI 43.2
[2021-10-03 05:46] LABS: #Eosinphils 0.2 thou/uL (0.0-0.7); #Lymphocytes 1.8 thou/uL (1.20-3.40); #Monocytes 0.3 thou/uL (0.11-0.59); #Neutrophils 4.1 thou/uL (1.40-6.50); %Basophils 0.4 % (0.0-1.0); %Eosinophils 3.9 % (0.0-10.0); %Monocytes 4.6 % (0.0-10.0); %Neutrophils 63.2 % (42.0-75.0); Hemoglobin 12.2 g/dL (12.0-16.0); Mean Corpuscular HGB CONC 32.6 g/dL (32.0-36.0); Mean Corpuscular Hemoglobin 26.8 pg (27.0-31.0); Mean Platelet Volume 9.2 fL (7.4-10.4); Platelet Count 177 thou/uL (130-400); RBC Distribution Width 14.3 % (11.5-14.5); Red Blood Cell (RBC) Count 4.57 mill/uL (4.20-5.40); White Blood Cell (WBC) Count 6.4 thou/uL (4.8-10.8)
[2021-10-03 06:03] LABS: Anion Gap 15 mmol/L (10-20); BUN (Urea Nitrogen) 6 mg/dL (9.8-20.1); Calc. Creatinine Clearance 213 mL/min (70-130); Calcium 8.5 mg/dL (7.8-10.44); Carbon Dioxide 23 mmol/L (22-29); Chloride 103 mmol/L (98-107); Estimated GFR 109; Glucose 195 mg/dL (70-105); Potassium 4.3 mmol/L (3.5-5.1); Sodium 137 mmol/L (136-145)
[2021-10-03] MEDS: Acetaminophen 325 MG TAB PO PRN ×3 (08:48→16:37)
[2021-10-03] MEDS: Enoxaparin Sodium 40 MG/0.4 ML SYRINGE SC SCH (08:48)
[2021-10-03] MEDS: Sodium Chloride 0.9% 1,000 ML IV SCH ×3 (12:18→21:00)
[2021-10-03] MEDS: Meclizine HCl 25 MG TAB PO SCH ×2 (13:29→21:40)
[2021-10-03 14:49] LABS: Amphetamine Not Detected (NotDetected); Barbiturates Screen Detected (NotDetected); Benzodiazepine Screen Not Detected (NotDetected); Cocaine Metabolite Screen Not Detected (NotDetected); Methadone Not Detected (NotDetected); Methamphetamine Not Detected (NotDetected); Opiate Screen Not Detected (NotDetected); Oxycodone Screen Not Detected (NotDetected); Phencyclidine (PCP) Not Detected (NotDetected); THC/Cannabinoid Screen Not Detected (NotDetected); Tricyclic Screen Not Detected (NotDetected)
[2021-10-03] MEDS ORDERED: Lorazepam 0.5 MG TAB PO SCH (15:30)
[2021-10-03] MEDS ORDERED: Dextrose 5% in Water 1,000 ML IV PRN (20:15)
[2021-10-03] MEDS ORDERED: HumaLOG 300 UNITS/3 ML VIAL SC PRN (20:15)
[2021-10-03] MEDS ORDERED: Dextrose 50% Abboject 50 ML SYRINGE IVP PRN (20:15)
[2021-10-03] MEDS: HYDROcodone/Acetaminophen 5/325 mg Tablet PO PRN (20:18)
[2021-10-03] MEDS ORDERED: Gabapentin 300 MG CAP PO SCH (21:00)
[2021-10-04] MEDS: Meclizine HCl 25 MG TAB PO SCH ×2 (06:09→13:22)
[2021-10-04] MEDS: HumaLOG 300 UNITS/3 ML VIAL SC PRN ×2 (06:32→11:03)
[2021-10-04] MEDS: HYDROcodone/Acetaminophen 5/325 mg Tablet PO PRN (06:34)
[2021-10-04] MEDS: Enoxaparin Sodium 40 MG/0.4 ML SYRINGE SC SCH (08:00)
[2021-10-04] MEDS ORDERED: Rosuvastatin 10 MG TAB PO SCH (09:00)
[2021-10-04] MEDS ORDERED: Cholecalciferol 1,000 UNITS (25 MCG) TAB PO SCH (09:00)
[2021-10-04] MEDS ORDERED: Aspirin 81 mg Enteric Coated Tablet PO SCH (09:00)
[2021-10-04 11:51] VITALS: TEMP 97.8
[2021-10-04 13:17] VITALS: BP 141/77
== END 2021-10-04 14:40 | disposition home or self-care (01) ==
LOC: ERS 15:43 → NEURO 19:46 → 2SW 10-03 21:18
PROVIDERS: ADMIT Hospitalist; ATTEND Hospitalist
DX: R55 Syncope and collapse (principal); H81.10 Benign paroxysmal vertigo, unspecified ear; E11.43 Type 2 diabetes mellitus with diabetic autonomic (poly)neuropathy; K31.84 Gastroparesis; E78.5 Hyperlipidemia, unspecified; K21.9 Gastro-esophageal reflux disease without esophagitis; K58.0 Irritable bowel syndrome with diarrhea; E87.1 Hypo-osmolality and hyponatremia; G47.33 Obstructive sleep apnea (adult) (pediatric); K11.8 Other diseases of salivary glands; D66 Hereditary factor VIII deficiency; M19.90 Unspecified osteoarthritis, unspecified site; F17.210 Nicotine dependence, cigarettes, uncomplicated; Z86.16 Personal history of COVID-19; Z79.82 Long term (current) use of aspirin; Z79.84 Long term (current) use of oral hypoglycemic drugs; Z79.899 Other long term (current) drug therapy; Z88.1 Allergy status to other antibiotic agents; Z88.5 Allergy status to narcotic agent; Z88.8 Allergy status to other drugs, medicaments and biological substances; Z91.018 Allergy to other foods; Z20.822 Contact with and (suspected) exposure to COVID-19
CPT/HCPCS: 36415; 36416; 70496; 70498; 70551; 71045; 80048; 80053; 80306; 81003; 81015; 83690; 83735; 84484; 85025; 85379; 85610; 85730; 93005; 94660; 96361; 96365; 96372; 96375; G0378; J1200; J1650; J1815; J1885; J2765; J3475; J7050; Q9967; U0003; U0005

== ENCOUNTER 2021-10-31 20:49 | Emergency (ER) | payer BC ==
[2021-10-31 21:43] LABS: #Eosinphils 0.2 thou/uL (0.0-0.7); #Lymphocytes 2.1 thou/uL (1.20-3.40); #Monocytes 0.4 thou/uL (0.11-0.59); #Neutrophils 7.1 thou/uL (1.40-6.50); %Basophils 0.4 % (0.0-1.0); %Eosinophils 2.4 % (0.0-10.0); %Lymphocytes 21.5 % (21.0-51.0); %Monocytes 4.3 % (0.0-10.0); %Neutrophils 71.4 % (42.0-75.0); Hemoglobin 13.9 g/dL (12.0-16.0); Mean Corpuscular HGB CONC 32.8 g/dL (32.0-36.0); Mean Corpuscular Hemoglobin 27.2 pg (27.0-31.0); Mean Platelet Volume 8.4 fL (7.4-10.4); Platelet Count 267 thou/uL (130-400); RBC Distribution Width 14.9 % (11.5-14.5); White Blood Cell (WBC) Count 9.9 thou/uL (4.8-10.8)
[2021-10-31] MEDS ORDERED: Ondansetron PF 4 MG/2 ML Vial ONE (22:06)
[2021-10-31] MEDS ORDERED: Metoclopramide HCl 10 MG/2 ML VIAL ONE (22:06)
[2021-10-31] MEDS ORDERED: diphenhydrAMINE 25 MG CAP ONE (22:06)
[2021-10-31] MEDS ORDERED: Morphine 4 MG/ML VIAL ONE (22:06)
[2021-10-31] MEDS ORDERED: diphenhydrAMINE 50 MG/ML VIAL ONE (22:07)
[2021-10-31 22:08] LABS: ALT (SGPT) 30 U/L (8-55); AST (SGOT) 61 U/L (5-34); Albumin 4.3 g/dL (3.5-5.0); Alkaline Phosphatase 183 U/L (40-110); Anion Gap 15 mmol/L (10-20); BUN (Urea Nitrogen) 10 mg/dL (9.8-20.1); Bilirubin, Total 0.3 mg/dL (0.2-1.2); Calc. Creatinine Clearance 0 mL/min (70-130); Calcium 9.9 mg/dL (7.8-10.44); Carbon Dioxide 26 mmol/L (22-29); Chloride 100 mmol/L (98-107); Estimated GFR 106; Globulin 3.3 g/dL (2.4-3.5); Glucose 132 mg/dL (70-105); Potassium 4.3 mmol/L (3.5-5.1); Protein, Total 7.6 g/dL (6.0-8.3); Sodium 137 mmol/L (136-145)
[2021-10-31 22:22] LABS: CK (CPK) 29 U/L (29-168); Lipase 106 U/L (8-78)
[2021-11-01 00:45] LABS: Lactic Acid 2.2 mmol/L (0.5-2.2)
[2021-11-01 00:59] LABS: Troponin I Less than 0.010 ng/mL (< 0.028)
== END 2021-11-01 01:53 | disposition home or self-care (01) ==
LOC: ERS 20:49
DX: R07.89 Other chest pain (principal); E11.9 Type 2 diabetes mellitus without complications; E78.5 Hyperlipidemia, unspecified; K21.9 Gastro-esophageal reflux disease without esophagitis; F17.210 Nicotine dependence, cigarettes, uncomplicated
CPT/HCPCS: 36415; 71045; 80053; 82550; 83605; 83690; 84484; 85025; 93005; 94760; 96365; 96375; J1200; J2270; J2405; J2765

== ENCOUNTER 2021-11-21 16:22 | Inpatient (IN) | payer BC ==
[2021-11-21 16:51] LABS: #Basophils 0.1 thou/uL (0.0-0.2); #Eosinphils 0.2 thou/uL (0.0-0.7); #Lymphocytes 2.6 thou/uL (1.20-3.40); #Monocytes 0.4 thou/uL (0.11-0.59); #Neutrophils 6.7 thou/uL (1.40-6.50); %Basophils 0.6 % (0.0-1.0); %Lymphocytes 26.4 % (21.0-51.0); %Monocytes 3.6 % (0.0-10.0); %Neutrophils 67.3 % (42.0-75.0); Hemoglobin 14.4 g/dL (12.0-16.0); Mean Corpuscular HGB CONC 32.9 g/dL (32.0-36.0); Mean Corpuscular Hemoglobin 27.1 pg (27.0-31.0); Mean Corpuscular Volume 82.4 fL (78.0-98.0); Mean Platelet Volume 8.3 fL (7.4-10.4); Platelet Count 293 thou/uL (130-400); RBC Distribution Width 14.8 % (11.5-14.5); Red Blood Cell (RBC) Count 5.33 mill/uL (4.20-5.40)
[2021-11-21 17:15] LABS: ALT (SGPT) 26 U/L (8-55); AST (SGOT) 63 U/L (5-34); Albumin 4.3 g/dL (3.5-5.0); Alkaline Phosphatase 158 U/L (40-110); Anion Gap 14 mmol/L (10-20); BUN (Urea Nitrogen) 8 mg/dL (9.8-20.1); Bilirubin, Total 0.4 mg/dL (0.2-1.2); Calc. Creatinine Clearance 0 mL/min (70-130); Calcium 9.9 mg/dL (7.8-10.44); Carbon Dioxide 25 mmol/L (22-29); Chloride 99 mmol/L (98-107); Estimated GFR 102; Glucose 101 mg/dL (70-105); Protein, Total 8.3 g/dL (6.0-8.3); Sodium 134 mmol/L (136-145)
[2021-11-21] MEDS ORDERED: Ondansetron ODT 4 MG TAB SL PRN (21:15)
[2021-11-21] MEDS ORDERED: Ondansetron PF 4 MG/2 ML Vial IVP PRN ×2 (21:15→22:03)
[2021-11-21 21:50] LABS: Troponin I Less than 0.010 ng/mL (< 0.028)
[2021-11-21] MEDS ORDERED: Dextrose 5% in Water 1,000 ML IV PRN (22:18)
[2021-11-21] MEDS ORDERED: Dextrose 50% Abboject 50 ML SYRINGE SLOW IVP PRN (22:18)
[2021-11-21] MEDS ORDERED: Docusate 100 MG CAP PO PRN (22:21)
[2021-11-21 23:25] VITALS: BMI 42.1
[2021-11-22 00:20] LABS: Bacteria/HPF 4+ HPF (None Seen); Bilirubin Negative (Negative); Blood, Urine Negative (Negative); Clarity Clear (Clear); Glucose, Urine (Dipstick) Normal (Negative); Ketone, Urine Negative (Negative); Leukocyte 250 Leu/uL (Negative); Mucous/LPF Rare LPF (<2+); Nitrite Negative (Negative); Protein, Urine (Dipstick) Negative (Neg-Trace); RBC/HPF 0-3 HPF (0-3); Specific Gravity, Urine 1.013 (1.002-1.036); Squamous Epithelial 0-3 HPF (0-3); Urobilinogen Normal mg/dL (Less than 2); pH, Urine 5.5 (5.0-9.0)
[2021-11-22 00:22] LABS: Urine Culture Reflex Yes Yes
[2021-11-22 01:30] LABS: Troponin I Less than 0.010 ng/mL (< 0.028)
[2021-11-22] MEDS ORDERED: ALPRAZolam 0.25 MG TAB PO PRN (03:03)
[2021-11-22] MEDS ORDERED: tiZANidine HCl 4 MG TAB PO PRN (03:10)
[2021-11-22 04:27] LABS: #Basophils 0.1 thou/uL (0.0-0.2); #Eosinphils 0.3 thou/uL (0.0-0.7); #Lymphocytes 2.3 thou/uL (1.20-3.40); #Monocytes 0.5 thou/uL (0.11-0.59); #Neutrophils 5.9 thou/uL (1.40-6.50); %Basophils 0.7 % (0.0-1.0); %Eosinophils 3.3 % (0.0-10.0); %Lymphocytes 25.2 % (21.0-51.0); %Monocytes 5.8 % (0.0-10.0); Hemoglobin 12.6 g/dL (12.0-16.0); Mean Corpuscular HGB CONC 32.8 g/dL (32.0-36.0); Mean Corpuscular Hemoglobin 27.1 pg (27.0-31.0); Mean Corpuscular Volume 82.7 fL (78.0-98.0); Mean Platelet Volume 8.9 fL (7.4-10.4); Platelet Count 233 thou/uL (130-400); RBC Distribution Width 14.5 % (11.5-14.5); Red Blood Cell (RBC) Count 4.63 mill/uL (4.20-5.40); White Blood Cell (WBC) Count 9.1 thou/uL (4.8-10.8)
[2021-11-22 04:57] LABS: ALT (SGPT) 24 U/L (8-55); AST (SGOT) 49 U/L (5-34); Albumin 3.7 g/dL (3.5-5.0); Alkaline Phosphatase 148 U/L (40-110); Anion Gap 16 mmol/L (10-20); BUN (Urea Nitrogen) 8 mg/dL (9.8-20.1); Bilirubin, Total 0.3 mg/dL (0.2-1.2); Calc. Creatinine Clearance 169 mL/min (70-130); Calcium 9.2 mg/dL (7.8-10.44); Carbon Dioxide 21 mmol/L (22-29); Chloride 101 mmol/L (98-107); Estimated GFR 103; Globulin 3.3 g/dL (2.4-3.5); Glucose 209 mg/dL (70-105); Magnesium 1.8 mg/dL (1.6-2.6); Potassium 3.8 mmol/L (3.5-5.1); Sodium 134 mmol/L (136-145)
[2021-11-22] MEDS: Acetaminophen 325 MG TAB PO PRN ×2 (06:25→19:50)
[2021-11-22] MEDS: Cholecalciferol 1,000 UNITS (25 MCG) TAB PO SCH (08:21)
[2021-11-22] MEDS: Rosuvastatin 20 MG TAB PO SCH (08:21)
[2021-11-22] MEDS: Aspirin 81 mg Enteric Coated Tablet PO SCH (08:22)
[2021-11-22] MEDS ORDERED: MAGNESIUM AMINO ACID CHELATE PO SCH (09:00)
[2021-11-22] MEDS ORDERED: Lisinopril 5 MG TAB PO SCH (09:00)
[2021-11-22] MEDS: HumaLOG 300 UNITS/3 ML VIAL SC PRN ×2 (11:01→15:55)
[2021-11-22 12:45] LABS: SARS-CoV-2 PCR NAA for Saliva Not Detected (NotDetected)
[2021-11-22] MEDS ORDERED: Communication Order-Pharmacy FS SCH (15:30)
[2021-11-22 17:12] LABS: PTT 28.5 sec (22.9-36.1); Prothrombin Time 13.5 sec (12.0-14.7)
[2021-11-22] MEDS ORDERED: Gabapentin 300 MG CAP PO SCH (21:00)
[2021-11-23] MEDS ORDERED: Ibuprofen 200 MG TAB PO SCH (03:00)
[2021-11-23] MEDS: Cholecalciferol 1,000 UNITS (25 MCG) TAB PO SCH (05:38)
[2021-11-23] MEDS: Rosuvastatin 20 MG TAB PO SCH (05:38)
[2021-11-23] MEDS: Aspirin 81 mg Enteric Coated Tablet PO SCH (05:39)
[2021-11-23] MEDS ORDERED: Sodium Chloride 0.9% 1,000 ML IV SCH ×2 (06:00→08:36)
[2021-11-23] MEDS ORDERED: Heparin 10,000 UNITS/ 10 ML VIAL ONE (06:50)
[2021-11-23] MEDS ORDERED: Lidocaine 1% (PF) 30 ML VIAL ONE (06:53)
[2021-11-23] MEDS ORDERED: Midazolam HCl 2 mg/2 ml Vial ONE (07:54)
[2021-11-23] MEDS ORDERED: Fentanyl 100 MCG/2 ML VIAL ONE (07:54)
[2021-11-23] MEDS ORDERED: diphenhydrAMINE 50 MG/ML VIAL ONE (08:18)
[2021-11-23] MEDS ORDERED: Hydrocortisone Sod Succ/PF 100 mg/2 ml Vial ONE (08:29)
[2021-11-23] MEDS ORDERED: Nitroglycerin 0.4 MG TAB (25 Tab Bottle) SL PRN (08:36)
[2021-11-23] MEDS ORDERED: Sodium Chloride 0.9% 200 ML IV PRN (08:36)
[2021-11-23] MEDS ORDERED: Iopamidol 370 76% 100 ML VIAL ONE ×2 (10:20→10:29)
[2021-11-23 17:22] VITALS: BP 131/70; TEMP 98.1
== END 2021-11-23 19:17 | disposition home or self-care (01) | DRG 287 ==
LOC: ERS 16:22 → 2SW 21:02 → OBSVTOIN 11-22 15:55
PROVIDERS: ADMIT Internal Medicine; ATTEND Hospitalist
PROC: 4A023N7 Measurement of Cardiac Sampling and Pressure, Left Heart, Percutaneous Approach (ICD-10-PCS; principal; 2021-11-23)
PROC: B2101ZZ Fluoroscopy of Single Coronary Artery using Low Osmolar Contrast (ICD-10-PCS; 2021-11-23)
PROC: B2151ZZ Fluoroscopy of Left Heart using Low Osmolar Contrast (ICD-10-PCS; 2021-11-23)
DX: R55 Syncope and collapse (principal); Z68.41 Body mass index [BMI] 40.0-44.9, adult; G47.33 Obstructive sleep apnea (adult) (pediatric); K21.9 Gastro-esophageal reflux disease without esophagitis; Z79.84 Long term (current) use of oral hypoglycemic drugs; E11.40 Type 2 diabetes mellitus with diabetic neuropathy, unspecified; F41.9 Anxiety disorder, unspecified; K76.0 Fatty (change of) liver, not elsewhere classified; E78.00 Pure hypercholesterolemia, unspecified; F17.210 Nicotine dependence, cigarettes, uncomplicated; Z86.16 Personal history of COVID-19; Z79.899 Other long term (current) drug therapy; R91.8 Other nonspecific abnormal finding of lung field; E66.9 Obesity, unspecified
CPT/HCPCS: 36415; 36416; 71045; 71275; 80053; 81001; 83735; 83880; 84484; 85025; 85610; 85730; 87077; 87086; 87186; 93005; 93458; 94660; 95816; 95819; 95957; 99156; 99157; C1769; C1894; G0378; J1200; J1644; J1720; J1815; J2001; J2250; J3010; J7050; U0003; U0005